=== PATIENT | female | born 2000 | race Caucasian/White ===

== ENCOUNTER 2024-05-23 19:24 | Emergency (ER) | payer SELFPAY ==
--- OUTSIDE RECORDS SUMMARY | 2024-05-23 19:29 | XMS REPORT | Continuity of Care Document ---
Author Name Unknown Address [address] [facility] [address] [id number] [facility] thconnect Address [address] [facility] [address] [place] [address] Care Team Providers Care Pole Cutter Name Role Phone LINDY FINLEY Primary Care Physician Unavailab LINDA Souza Attending Clinician Unavailable SARAH FLORES Attending Clinician Unavailbryan Barnhart [facility]ending [facility]ician [phone] LINDY FINLEY Attending Clinician Unavailable Doctor Unassigned, [place] Attending Clinician U navitzel Lab, [facility] Attending Clinician Unavailable Ekta MILK BOTTLING MACHINE OPERATORLindy Ignacio Attending Clinician [phone] Nurse [facility] Rg[facility] Cprit Obgyn Attending Clini bette Unavailable Akinlakshmi Alba AKHTAR Attending Clinician + ALBA TROTTER Attending Clinician Unavail able ALIVIA GRECO Attending Clinician UnavailAlivia Patterson CNM Attending Clinician [phone] LILI HANSON Attending Clinician Unavailable Visit, [facility] Nurse Attending Clinician Unava ilCATHY Rojas Attending Clinician Unavailable Blaine HADLEY, Cathy Nguyen Attending Clinician [phone] Elizabet Gomez MD, Kadie Attending Clinician + Mehran HADLEY, Yossi Attending Clinician [phone] Lamont HADLEY, Keagan Attending Clinician [phone] Provider, [facility] Temp Attending Clinician Dora vailable Quynh RN, Kandice Lara Attending Clinician Dora vailable Ultrasound, [facility] Attending Clinician UnavailTan Mead MD Attending Clinician [phone] TAN MONGE Attending Clinician Unavailable TAN MONGE Attending Clinician Unavailable Maricel Hitchcock Attending Clinician [phone] Lab, Kaye Attending Clinician Unavailable DANY LAW Attending Clinician Unavailab le Aamir DO, Rachid Attending Clinician [phone] Dany Beauchamp Attending Clinician + [phone] Danyel Dias MD Attending Clinician + DANYEL DIAS Attending Clinician Unav ailable Doctor Unassigned, [place] Attending Clinician U navailable CATHY VALLADARES Admitting Clinician Unavailable Cathy Valladares MD Admitting Clinician [phone] Payers Payer Name Policy Type Policy Number Effective Date Expirati on Date Source [facility] [id number] 2022 00:00:00 Problems Condition Name Condition Details Condition Category Status Onset Date Resolution Date Last Treatment Date Treating Clinician Comments Source Chest pain, unspecifie d type Chest pain, unspecifie d type Disease Active 03-21 00:00: 00 [facility] 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 Disease Active 03-21 00:00: 00 [facility] Encounter for other contracept becca management Encounter for other contracept becca management Disease Active 12-03 00:00: 00 [facility] Endometrit is following delivery Endometrit is following delivery Disease Active 10-27 00:00: 00 [facility] depression depression Disease Active 10-27 00:00: 00 [facility] Endometrit is following delivery Endometrit is following delivery Disease Active 10-27 00:00: 00 [facility] Obesity (BMI 30-39.9) Obesity (BMI 30-39.9) Disease Active 3-17 00:00: 00 [facility] Chronic hypertensi on Chronic hypertensi on Disease Active 0 3-10 00:00: 00 [facility] Over weight Over weight Disease Active 2021-07 1-22 00:00: 00 [facility] BMI 28.0-28.9, adult BMI 28.0-28.9, adult Disease Active 8-16 00:00: 00 [facility] No known active problems No known active problems Disease [facility] Anemia, Anemia, Disease Resolve d 0 4-05 00:00: 00 2024-01-10 00:00:00 2024-01-10 10:43:40 [facility] Status post delivery Status post delivery Disease Resolve d 0 4-05 00:00: 00 2022-12-03 00:00:00 2022-12-03 15:24:09 [facility] 38 weeks gestation of 38 weeks gestation of Disease Resolve d 0 3-10 00:00: 00 2022 00:00:00 2022 21:43:27 [facility] Heartburn during in third trimester Heartburn during in third trimester Disease Resolve d 0 2-03 00:00: 00 2022 00:00:00 2022 21:43:38 [facility] related carpal tunnel syndrome in third trimester related carpal tunnel syndrome in third trimester Disease Resolve d 2022-0 2-03 00:00: 00 2022 00:00:00 2022 21:43:42 [facility] Pain of round ligament during Pain of round ligament during Disease Resolve d 2022-0 1-17 00:00: 00 2022 00:00:00 2022 21:43:26 [facility] Elevated blood pressure reading without diagnosis of hypertensi on Elevated blood pressure reading without diagnosis of hypertensi on Disease Resolve d 2021-07 1-22 00:00: 00 2022 00:00:00 2022 21:43:32 [facility] Obesity affecting Obesity affecting Disease Resolve d 1 1-22 00:00: 00 2022 00:00:00 2022 21:43:40 [facility] Primigravi da in first trimester Primigravi da in first trimester Disease Resolve d 0 8-16 00:00: 00 2022 00:00:00 2022 21:43:43 [facility] Supervisio n of high risk in first trimester Supervisio n of high risk in first trimester Disease Resolve d 8-16 00:00: 00 2022-07-21 00:00:00 2022-07-21 19:28:34 [facility] BMI 28.0-28.9, adult BMI 28.0-28.9, adult Disease Resolve d 8-16 00:00: 00 2022-07-07 00:00:00 2022-07-07 16:17:42 [facility] Nausea without vomiting Nausea without vomiting Disease Resolve d 8-16 00:00: 00 2022-07-07 00:00:00 2022-07-07 16:18:02 [facility] Allergies, Adverse Reactions, Alerts Allergy Name Allergy Type Status Severity Reaction(s) Onset Date Inactive Date Treating Clinician Comments Source NO KNOWN ALLERGIE S Drug Class Active [facility] Social History Social Habit Start Date Stop Date Quantity Comments Source ASSERTION 2022-01-16 00:00:00 [facility] History of Social function 2024-03-21 00:00:00 2024-03-21 00:00:00 [facility] Alcoholic beverage intake 2024-03-21 00:00:00 2024-03-21 00:00:00 Ex-drinker (finding) [facility] Exposure to SARS-CoV-2 (event) 2022-11-23 00:00:00 2022-12-03 14:26:00 Not sure [facility] Alcohol intake 2022-12-03 00:00:00 2022-12-03 00:00:00 Ex-drinker (finding) [facility] Tobacco use and exposure 2022-02-09 00:00:00 2022-02-09 00:00:00 Smokeless tobacco non-user [facility] Sex assigned at 2000 00:00:00 2000 00:00:00 [facility] Smoking Status Start Date Stop Date Source Tobacco smoking consumption unknown [facility] Never smoked tobacco [facility] Medications Ordered Medication Name Filled Medication Name Start Date Stop Date Current Medication? Ordering Clinician Indication Dosage Frequency Signature (SIG) Comments Components Source omeprazole 40 mg capsule 03-21 00:00: 00 Yes [id number] 40mg Take 1 capsule by mouth in the morning. [facility] norethindro ne 0.35 mg tablet 03-09 00:00: 00 03-21 00:00 :00 No [id number] 1{tbl} Take 1 tablet by mouth in the morning. [facility] norethindro ne 0.35 mg tablet 12-03 00:00: 00 03-09 00:00 :00 No [id number] 1{tbl} Take 1 tablet by mouth in the morning. [facility] hydroCHLORO thiazide 12.5 mg tablet 16 00:00: 00 03-21 00:00 :00 No [id number] 12.5mg Take 1 tablet by mouth in the morning. [facility] tobramycin (NEBCIN) 400 mg in NaCl 0.9% (NS) piggyback 10-06 23:00: 00 10-06 23:34 :00 No 5mg/kg 400 mg (rounded from 402 mg = 5 mg/kg ?80.4 kg Adjusted weight), IV Piggyback, Q24H ABX, 1 dose, First dose (after last modificati on) on Tue10/06/22 at 1800, Administer over 30 Minutes, 50 mL
R erlin for Anti-Infec tive: Documented Infection< br>Documen tani Infection Site: Pelvic
Duration of Therapy: 7 days [facility] hydroCHLORO thiazide (ESIDRIX) tablet 12.5 mg 10-06 19:00: 00 Yes 12.5mg 12.5 mg, Oral, DAILY, First dose on Tue10/06/22 at 1400, Until Discontinu ed, Routine [facility] polyethylen e glycol 3350 powder 17 g 10-05 23:00: 00 Yes 17g 17 g, Oral, PRN, Starting on Tue10/05/22 at 1800, Until Discontinu ed, Routine, Constipati on [facility] magnesium hydroxide (MILK OF MAGNESIA) 400 mg/5 mL suspension 30 mL 10-05 23:00: 00 Yes 30mL 30 mL, Oral, QDAILYPRN, Starting on Tue10/05/22 at 1800, Until Discontinu ed, Routine, Constipati on [facility] sennosides (SENOKOT) tablet 8.6 mg 10-05 14:00: 00 Yes 8.6mg 8.6 mg, Oral, DAILY, First dose on Tue10/05/22 at 0900, Until Discontinu ed, Routine [facility] magnesium hydroxide (MILK OF MAGNESIA) 400 mg/5 mL suspension 30 mL 10-05 14:00: 00 10-05 22:59 :44 No 30mL 30 mL, Oral, DAILY, First dose (after last modificati on) on Tue10/05/22 at 0900, Until Discontinu ed, Routine [facility] diphenhydrA MINE (BENADRYL) injection 50 mg 10-05 06:00: 00 10-05 06:24 :00 No 50mg 50 mg, Intravenou s, ONCE, 1 dose, On Tue10/05/22 at 0115, Routine [facility] polyethylen e glycol 3350 powder 17 g 10-05 06:00: 00 10-05 22:59 :44 No 17g 17 g, Oral, DAILY, First dose on Tue10/05/22 at 0100, Until Discontinu ed, Routine [facility] lidocaine 1% (XYLOCAINE) 10 mg/mL (1 %) injection 10 mL 10-05 00:45: 00 10-05 00:01 :00 No 10mL 10 mL, Infiltrati on, ONCE, 1 dose, On Tue10/04/22 at 1945, Routine [facility] acetaminoph en (TYLENOL) tablet 650 mg 10-04 23:15: 00 10-05 05:52 :00 No 650mg 650 mg, Oral, ONCE, 1 dose, On Tue10/04/22 at 1815, Routine [facility] simethicone (GAS RELIEF (SIMETHICON E)) chewable tablet 160 mg 10-04 23:00: 00 Yes 160mg 160 mg, Oral, PC+HS, First dose (after last modificati on) on Tue10/04/22 at 1800, Until Discontinu ed, Routine [facility] tobramycin (NEBCIN) 400 mg in NaCl 0.9% (NS) piggyback 10-04 23:00: 00 10-06 22:57 :52 No 5mg/kg 400 mg (rounded from 402 mg = 5 mg/kg ?80.4 kg Adjusted weight), IV Piggyback, Q24H ABX, 3 doses, First dose on Tue10/04/22 at 1800, Last dose on Tue10/06/22 at 1800, Administer over 30 Minutes, 50 mL
Reas on for Anti-Infec tive: Documented Infection< br>Documen tani Infection Site: Pelvic
Duration of Therapy: 7 days [facility] ampicillin (POLYCILLIN -N) 2,000 mg in NaCl 0.9% (NS) 100 mL MINI-BAG 10-04 23:00: 00 10-06 22:57 :51 No 2g 2,000 mg (2 g), IV Piggyback, Q6H ABX, First dose on Tue10/04/22 at 1800, Until Discontinu ed, Administer over 30 Minutes, 100 mL
Reas on for Anti-Infec tive: Empiric Therapy for Suspected Infection< br>Empiric Therapy Site: Pelvic
Duration of therapy: 5 days [facility] clindamycin in 5 % dextrose (CLEOCIN) 900 mg/50 mL IV piggyback RTU 900 mg 10-04 23:00: 00 10-06 22:57 :51 No 900mg 900 mg, IV Piggyback, Q8H ABX, 9 doses, First dose on Tue10/04/22 at 1800, Last dose on Tue10/07/22 at 1000, Administer over 30 Minutes, 50 mL
Reas on for Anti-Infec tive: Empiric Therapy for Suspected Infection< br>Empiric Therapy Site: Pelvic
Duration of therapy: 72 hours
R estricted use approved by: [employer]
seafood service team member approving Restricted medication : MAR BOOTHE [facility] lactated ringers IV infusion 500 mL 10-04 22:15: 00 10-04 21:40 :00 No 500mL at 999 mL/hr, 500 mL, Intravenou s, ONCE, 1 dose, On Tue10/04/22 at 1715, Routine [facility] vitamin w/FA tablet 10-04 00:00: 00 Yes [id number] 1{tbl} Take 1 tablet by mouth in the morning. [facility] vitamin w/FA tablet 10-04 00:00: 00 03-21 00:00 :00 No [id number] 1{tbl} Take 1 tablet by mouth in the morning. [facility] docusate 100 mg capsule 10-04 00:00: 00 03-21 00:00 :00 No [id number] 200mg Take 2 capsules by mouth once daily as needed for Constipati on. [facility] ferrous sulfate 325 mg (65 mg iron) tablet 10-04 00:00: 00 03-21 00:00 :00 No [id number] 325mg Take 1 tablet by mouth in the morning and 1 tablet in the evening. [facility] ibuprofen 600 mg tablet 10-04 00:00: 00 03-21 00:00 :00 No [id number] 600mg Take 1 tablet by mouth every 6 (six) hours as needed (Pain). Take with food or milk. [facility] norethindro ne 0.35 mg tablet 10-04 00:00: 00 03-21 00:00 :00 No [id number] .35mg Take 1 tablet by mouth in the morning. [facility] HYDROcodone -acetaminop hen 5-325 mg tablet 10-04 00:00: 00 10-12 04:59 :00 No [id number] 1{tbl} Take 1 tablet by mouth every 6 (six) hours as needed for Pain (scale 7-10) or Pain (scale 4-6) (Pain scale above 4) for up to 7 days. Do not exceed 3 grams of acetaminop hen in 24 hours. Indication s: acute pain [facility] lactated ringers IV infusion 1,000 mL 10-03 14:45: 00 10-03 14:45 :00 No 1000mL at 125 mL/hr, 1,000 mL, IV Infusion, ONCE, 1 dose, On Tue10/03/22 at 0945, Routine [facility] rho(D) immune globulin (RHOGAM) syringe 300 mcg 10-03 14:42: 43 Yes 300ug 300 mcg, Intramuscu lar, ONCE, For 1 dose, Conditiona l, Routine [facility] HYDROcodone -acetaminop hen (NORCO 5) 5-325 mg tablet 2 tablet 10-03 14:42: 37 Yes 2{tbl} 2 tablet, Oral, Q6HPRN, Starting on Tue10/03/22 at 0942, Until Discontinu ed, Routine, Pain (scale 7-10), Alternate with Ibuprofen [facility] HYDROcodone -acetaminop hen (NORCO 5) 5-325 mg tablet 1 tablet 10-03 14:42: 37 Yes 1{tbl} 1 tablet, Oral, Q6HPRN, Starting on Tue10/03/22 at 0942, Until Discontinu ed, Routine, Pain (scale 4-6), Alternate with Ibuprofen [facility] ibuprofen (IBU) tablet 600 mg 10-03 14:42: 37 Yes 600mg 600 mg, Oral, Q6HPRN, Starting on Tue10/03/22 at 0942, Until Discontinu ed, Routine, Pain (scale 1-3) [facility] diphenhydrA MINE (BENADRYL) injection 25 mg 10-03 14:42: 37 Yes 25mg 25 mg, Slow IV Push, Q6HPRN, Starting on Tue10/03/22 at 0942, Until Discontinu ed, Routine, Itching [facility] diphenhydrA MINE (BENADRYL) tablet 25 mg 10-03 14:42: 37 Yes 25mg 25 mg, Oral, Q6HPRN, Starting on Tue10/03/22 at 0942, Until Discontinu ed, Routine, Sleep, Itching [facility] ondansetron (ZOFRAN (PF)) injection 4 mg 10-03 14:42: 37 Yes 4mg 4 mg, Slow IV Push, Q8HPRN, Starting on Tue10/03/22 at 0942, Until Discontinu ed, Routine, Nausea and Vomiting (N/V) [facility] bisacodyL (DULCOLAX) suppository 10 mg 10-03 14:42: 37 Yes 10mg 10 mg, Rectal, QDAILYPRN, Starting on Tue10/03/22 at 0942, Until Discontinu ed, Routine, Constipati on [facility] lactated ringers IV infusion 1,000 mL 10-03 14:42: 37 10-05 03:18 :59 No 1000mL at 125 mL/hr, 1,000 mL, IV Infusion, PRN, 1 dose, Starting on Tue10/03/22 at 0942, Until Discontinu ed, Routine [facility] docusate (COLACE) capsule 200 mg 10-03 14:42: 37 10-05 06:00 :34 No 200mg 200 mg, Oral, QDAILYPRN, Starting on Tue10/03/22 at 0942, Until Tue10/05/22 at 0100, Routine, Constipati on [facility] magnesium hydroxide (MILK OF MAGNESIA) 400 mg/5 mL suspension 30 mL 10-03 14:42: 37 10-05 06:00 :34 No 30mL 30 mL, Oral, QDAILYPRN, Starting on Tue10/03/22 at 0942, Until Tue10/05/22 at 0100, Routine, Constipati on [facility] simethicone (GAS RELIEF (SIMETHICON E)) chewable tablet 160 mg 10-03 14:42: 37 10-04 18:48 :38 No 160mg 160 mg, Oral, PC+HSPRN, Starting on Tue10/03/22 at 0942, Until Tue10/04/22 at 1348, Routine, Gas [facility] acetaminoph en ADULT (OFIRMEV) injection 1,000 mg 10-03 14:15: 00 10-03 13:38 :00 No 1000mg 1,000 mg, IV Infusion, at 400 mL/hr Administer over 15 Minutes, ONCE, 1 dose, On Tue10/03/22 at 0915, Routine
Indicatio n: Perioperat becca Patient [facility] diphenoxyla te-atropine (LOMOTIL) 2.5-0.025 mg tablet 1 tablet 10-03 13:30: 00 10-03 12:43 :00 No 1{tbl} 1 tablet, Oral, ONCE, 1 dose, On Tue10/03/22 at 0830, Routine [facility] oxytocin (PITOCIN) 30 units in NS 500 mL IV infusion 10-03 11:10: 08 10-03 14:42 :40 No 300mL/h 300 mL/hr, IV Infusion, SEE-INSTRU CTIONS, Starting on Tue10/03/[address] at 300 mL/hr for 1 hr then 150 mL/hr for 1 hr. & nbsp; For post delivery uterotonic
[facility] metroNIDAZO LE in NaCl (iso-os) (FLAGYL I.V.) RTU IV infusion 500 mg 10-03 10:45: 00 10-04 01:48 :00 No 500mg 500 mg, IV Infusion, Q12H ABX, 2 doses, First dose on 10/03/22 at 0545, Last dose on Tue10/03/22 at 1745, Administer over 60 Minutes, 100 mL
Reas on for Anti-Infec tive: Surgical Prophylaxi s
Surgi agustina Prophylaxi s: [employer]
Duration of therapy: within 24 hours of surgery [facility] sodium citrate-cit alan acid (BICITRA) 500-334 mg/5 mL solution 30 mL 10-03 04:51: 48 10-03 09:45 :00 No 30mL 30 mL, Oral, PRE-PROCED URE ONCE, 1 dose, Starting on 10/02/22 at 2251, Until Discontinu ed, Routine, Surgery/Pr ocedure [facility] tobramycin (NEBCIN) 400 mg in NaCl 0.9% (NS) piggyback 10-03 03:42: 00 10-04 17:57 :28 No 5mg/kg 400 mg (rounded from 402 mg = 5 mg/kg ?80.4 kg Adjusted weight), IV Piggyback, Q24H ABX, 3 doses, First dose on 10/02/22 at 2145, Last dose on 10/04/22 at 2145, Administer over 30 Minutes, 50 mL
Reas on for Anti-Infec tive: Documented Infection< br>Documen tani Infection Site: Pelvic
Duration of Therapy: Other (see Comments) [facility] ampicillin (POLYCILLIN -N) 2,000 mg in NaCl 0.9% (NS) 100 mL MINI-BAG 10-03 03:41: 00 10-04 17:57 :28 No 2g 2,000 mg (2 g), IV Piggyback, Q6H ABX, First dose on 10/02/22 at 2145, Until Discontinu ed, Administer over 30 Minutes, 100 mL
Reas on for Anti-Infec tive: Documented Infection< br>Documen tani Infection Site: Pelvic
Duration of Therapy: Other (see Comments) [facility] acetaminoph en (TYLENOL) tablet 1,000 mg 10-02 20:30: 00 10-03 03:53 :00 No 1000mg 1,000 mg, Oral, ONCE, 1 dose, On Tue10/02/22 at 1430, Routine [facility] ropivacaine 0.2 % (NAROPIN (PF)) epidural infusion 10-02 11:56: 00 Yes Epidural, CONTINUOUS PRN, Starting on Tue10/02/22 at 0556, Until Discontinu ed, Routine, Intra-op [facility] butorphanol (STADOL) injection 1 mg 10-02 04:45: 00 10-02 03:57 :00 No 1mg 1 mg, Intravenou s, ONCE, 1 dose, On Tue10/01/22 at 2245, Routine [facility] butorphanol (STADOL) injection 1 mg 10-02 00:30: 00 10-01 23:39 :00 No 1mg 1 mg, Intravenou s, ONCE, 1 dose, On Tue10/01/22 at 1830, Routine [facility] oxytocin (PITOCIN) 30 units in NS 500 mL IV infusion 10-01 23:15: 54 10-03 14:42 :40 No 2mU/min at 2-40 mL/hr, IV Infusion, TITRATE, Starting on Tue10/01/22 at 1715, Until Tue10/03/22 at 0942, MARCEL [facility] proMETHazin e (PHENERGAN) 25 mg in NS 50 mL IV piggyback (CNR) 10-01 10:45: 00 10-01 11:17 :45 No 25mg 25 mg, IV Piggyback, at 200 mL/hr Administer over 15 Minutes, ONCE, 1 dose, On Tue10/01/22 at 0445, Routine [facility] butorphanol (STADOL) injection 1 mg 10-01 10:45: 00 10-01 10:28 :00 No 1mg 1 mg, Intravenou s, ONCE, 1 dose, On Tue10/01/22 at 0445, Routine [facility] hygroscopic cervical dilator 4 x 65 mm (DILAPAN) sponge Spge 4 Each 10-01 09:00: 00 10-01 08:25 :00 No 4{each} 4 Each, Cervical (Endo), ONCE NOW, 1 dose, On Tue10/01/22 at 0300, Routine [facility] lactated ringers IV infusion 500 mL 10-01 07:04: 20 10-03 14:42 :40 No 500mL at 999 mL/hr, 500 mL, IV Infusion, PRN - SEE INSTRUCTIO NS, Starting on Tue10/01/22 at 0104, Until 10/03/22 at 0942, Routine [facility] D5W-LR IV infusion 1,000 mL 10-01 07:04: 20 10-03 14:42 :40 No 1000mL at 1-125 mL/hr, IV Infusion, TITRATE, Starting on Tue10/01/22 at 0104, Until 10/03/22 at 0942, Routine [facility] sodium citrate-cit alan acid (BICITRA) 500-334 mg/5 mL solution 30 mL 10-01 07:04: 20 10-02 11:15 :00 No 30mL 30 mL, Oral, PRE-PROCED URE ONCE, 1 dose, Starting on Tue10/01/22 at 0104, Until Discontinu ed, Routine, Surgery/Pr ocedure [facility] vit 33-iron-fol ic-dha (SELECT-OB + DHA) 29 mg iron-1 mg -250 mg combo pack -19 00:00: 00 10-04 00:00 :00 No [id number] 1{packe t} Take 1 Packet by mouth in the morning. [facility] Immunizations Ordered Immunization Name Filled Immunization Name Date Status Comments Source HPV9 2024-02-22 00:00:00 Completed HPV9 2024-01-10 00:00:00 Completed [facility] TDAP 2022-07-21 00:00:00 Completed [facility] TDAP 2022-07-21 00:00:00 Completed [facility] TDAP 2022-07-21 00:00:00 Completed [facility] TDAP 2022-07-21 00:00:00 Completed [facility] TDAP 2022-07-21 00:00:00 Completed [facility] TDAP 2022-07-21 00:00:00 Completed [facility] TDAP 2022-07-21 00:00:00 Completed [facility] TDAP 2022-07-21 00:00:00 Completed [facility] TDAP 2022-07-21 00:00:00 Completed [facility] TDAP 2022-07-21 00:00:00 Completed [facility] TDAP 2022-07-21 00:00:00 Completed [facility] TDAP 2022-07-21 00:00:00 Completed [facility] TDAP 2022-07-21 00:00:00 Completed [facility] TDAP 2022-07-21 00:00:00 Completed [facility] TDAP 2022-07-21 00:00:00 Completed [facility] TDAP 2022-07-21 00:00:00 Completed [facility] TDAP 2022-07-21 00:00:00 Completed [facility] TDAP 2022-07-21 00:00:00 Completed [facility] TDAP 2022-07-21 00:00:00 Completed [facility] TDAP Unknown Completed [facility] HPV9 Unknown Completed [facility] TDAP Unknown Completed [facility] HPV9 Unknown Completed [facility] TDAP Unknown Completed [facility] HPV9 Unknown Completed [facility] TDAP Unknown Completed [facility] HPV9 Unknown Completed [facility] TDAP Unknown Completed [facility] HPV9 Unknown Completed [facility] TDAP Unknown Completed [facility] HPV9 Unknown Completed [facility] Vital Signs Vital Name Observation Time Observation Value Comments S shiela Systolic blood pressure 2024-03-21 19:59:00 137 mm[Hg] [facility] Diastolic blood pressure 2024-03-21 19:59:00 79 mm[Hg] [facility] Heart rate 2024-03-21 19:59:00 67 /min [facility] Body temperature 2024-03-21 19:59:00 37 Pattie [facility] Respiratory rate 2024-03-21 19:59:00 18 /min [facility] Body height 2024-03-21 19:59:[address] [facility] Body weight 2024-03-21 19:59:[address] [facility] BMI 2024-03-21 19:59:00 33.45 kg/m2 [facility] Oxygen saturation in Arterial blood by Pulse oximetry 2024-03-21 19:59:00 100 /min [facility] Body temperature 2024-02-22 16:05:00 36.67 Pattie [facility] Systolic blood pressure 2024-01-10 15:30:00 130 mm[Hg] [facility] Diastolic blood pressure 2024-01-10 15:30:00 67 mm[Hg] [facility] Heart rate 2024-01-10 15:30:00 68 /min [facility] Body temperature 2024-01-10 15:30:00 36.33 Pattie [facility] Respiratory rate 2024-01-10 15:30:00 18 /min [facility] Body height 2024-01-10 15:30:00 172.7 cm [facility] Body weight 2024-01-10 15:30:00 100.064 kg [facility] BMI 2024-01-10 15:30:00 33.54 kg/m2 [facility] Systolic blood pressure 2022-12-03 19:52:00 125 mm[Hg] [facility] Diastolic blood pressure 2022-12-03 19:52:00 62 mm[Hg] [facility] Heart rate 2022-12-03 19:52:00 61 /[facility] temperature 2022-12-03 19:52:00 36.78 Pattie [facility] Respiratory rate 2022-12-03 19:52:00 16 /min [facility] Body height 2022-12-03 19:52:00 172.7 cm [facility] Body weight 2022-12-03 19:52:[address] [facility] BMI 2022-12-03 19:52:00 31.52 kg/m2 Univ [facility] Systolic blood pressure 2022 20:37:00 113 mm[Hg] [facility] Diastolic blood pressure 2022 20:37:00 73 mm[Hg] [facility] Heart rate 2022 20:37:00 84 /min [facility] Body temperature 2022 20:37:00 36.67 Pattie [facility] Respiratory rate 2022 20:37:00 18 /min [facility] Body height 2022 20:37:00 172.7 cm [facility] Body weight 2022 20:37:00 91.717 kg [facility] BMI 2022 20:37:00 30.74 kg/m2 Univ [facility] Systolic blood pressure 2022-10-11 18:48:00 134 mm[Hg] [facility] Diastolic blood pressure 2022-10-11 18:48:00 80 mm[Hg] [facility] Heart rate 2022-10-11 18:47:00 90 /min Unive [facility] Body temperature 2022-10-11 18:47:00 37.06 Pattie [facility] Respiratory rate 2022-10-11 18:47:00 18 /min [facility] Body height 2022-10-11 18:47:00 172.7 cm [facility] Body weight 2022-10-11 18:47:[address] [facility] BMI 2022-10-11 18:47:00 31.09 kg/m2 [facility] Body weight 2022-10-07 20:00:00 105.1 kg [facility] BMI 2022-10-07 20:00:00 35.23 kg/m2 [facility] Systolic blood pressure 2022-10-07 13:28:00 138 mm[Hg] [facility] Diastolic blood pressure 2022-10-07 13:28:00 93 mm[Hg] [facility] Heart rate 2022-10-07 13:28:00 84 /min Un[facility] Body temperature 2022-10-07 13:28:00 36.61 Patite [facility] Respiratory rate 2022-10-07 13:28:00 17 /min [facility] Oxygen saturation in Arterial blood by Pulse oximetry 2022-10-07 13:28:00 99 /min [facility] Heart rate 2022-10-03 10:57:00 127 /[facility] Oxygen saturation in Arterial blood by Pulse oximetry 2022-10-03 10:57:00 99 /min [facility] Systolic blood pressure 2022-10-03 10:00:00 156 mm[Hg] [facility] Diastolic blood pressure 2022-10-03 10:00:00 89 mm[Hg] [facility] Body temperature 2022-10-03 10:00:00 37.44 Pattie [facility] Respiratory rate 2022-10-03 10:00:00 20 /min [facility] Systolic blood pressure 2022-09-30 21:16:00 151 mm[Hg] [facility] Diastolic blood pressure 2022-09-30 21:16:00 87 mm[Hg] [facility] Heart rate 2022-09-30 21:16:00 74 /min Unive [facility] Body temperature 2022-09-30 21:15:00 36.67 Pattie [facility] Respiratory rate 2022-09-30 21:15:00 18 /min [facility] Body height 2022-09-30 21:15:00 172.7 cm [facility] Body weight 2022-09-30 21:15:[address] [facility] BMI 2022-09-30 21:15:00 35.21 kg/m2 Univ [facility] Systolic blood pressure 2022-09-21 21:54:00 130 mm[Hg] [facility] Diastolic blood pressure 2022-09-21 21:54:00 78 mm[Hg] [facility] Heart rate 2022-09-21 21:46:00 76 /min Un[facility] Body temperature 2022-09-21 21:46:00 37 Pattie [facility] Respiratory rate 2022-09-21 21:46:00 18 /min [facility] Body height 2022-09-21 21:46:[address] [facility] Body weight 2022-09-21 21:46:00 102.967 kg [facility] BMI 2022-09-21 21:46:00 34.52 kg/m2 Univ [facility] Systolic blood pressure 2022-09-10 20:09:00 128 mm[Hg] [facility] Diastolic blood pressure 2022-09-10 20:09:00 86 mm[Hg] [facility] Heart rate 2022-09-10 20:09:00 82 /min Unive [facility] Body temperature 2022-09-10 20:03:00 36.44 Pattie [facility] Respiratory rate 2022-09-10 20:03:00 18 /min [facility] Body height 2022-09-10 20:03:[address] [facility] Body weight 2022-09-10 20:03:[address] [facility] BMI 2022-09-10 20:03:00 34.21 kg/m2 Univ [facility] Systolic blood pressure 2022-08-27 20:10:00 119 mm[Hg] [facility] Diastolic blood pressure 2022-08-27 20:10:00 71 mm[Hg] [facility] Heart rate 2022-08-27 20:05:00 62 /min [facility] Body temperature 2022-08-27 20:05:00 37.17 Pattie [facility] Respiratory rate 2022-08-27 20:05:00 17 /min [facility] Body height 2022-08-27 20:05:00 172.7 cm [facility] Body weight 2022-08-27 20:05:00 98.839 kg [facility] BMI 2022-08-27 20:05:00 33.13 kg/m2 [facility] Systolic blood pressure 2022-08-10 21:19:00 126 mm[Hg] [place] [facility] Diastolic blood pressure 2022-08-10 21:19:00 80 mm[Hg] [facility] Heart rate 2022-08-10 21:19:00 74 /min [facility] Body temperature 2022-08-10 21:19:00 37.06 Pattie [facility] Respiratory rate 2022-08-10 21:19:00 20 /min [facility] Body height 2022-08-10 21:19:00 172.7 cm [facility] Body weight 2022-08-10 21:19:[address] [facility] BMI 2022-08-10 21:19:00 31.90 kg/m2 Univ [facility] Systolic blood pressure 2022-07-21 21:07:00 131 mm[Hg] [facility] Diastolic blood pressure 2022-07-21 21:07:00 71 mm[Hg] [facility] Heart rate 2022-07-21 21:07:00 75 /min [facility] Body temperature 2022-07-21 21:07:00 37 Pattie [facility] Respiratory rate 2022-07-21 21:07:00 17 /min [facility] Body height 2022-07-21 21:07:00 172.7 cm [facility] Body weight 2022-07-21 21:07:00 92.67 kg [facility] BMI 2022-07-21 21:07:00 31.06 kg/m2 Univ [facility] Systolic blood pressure 2022-07-07 21:53:00 130 mm[Hg] [facility] Diastolic blood pressure 2022-07-07 21:53:00 86 mm[Hg] [facility] Heart rate 2022-07-07 21:53:00 88 /min Unive [facility] Body temperature 2022-07-07 21:53:00 37.17 Pattie [facility] Respiratory rate 2022-07-07 21:53:00 16 /min [facility] Body height 2022-07-07 21:53:[address] [facility] Body weight 2022-07-07 21:53:00 90.351 kg [facility] BMI 2022-07-07 21:53:00 30.29 kg/m2 Univ [facility] Systolic blood pressure 2022-06-15 21:32:00 134 mm[Hg] [facility] Diastolic blood pressure 2022-06-15 21:32:00 65 mm[Hg] [facility] Heart rate 2022-06-15 21:32:00 78 /min Unive [facility] Body temperature 2022-06-15 21:31:00 37.39 Pattie [facility] Respiratory rate 2022-06-15 21:31:00 18 /min [facility] Body height 2022-06-15 21:31:[address] [facility] Body weight 2022-06-15 21:31:[address] [facility] BMI 2022-06-15 21:31:00 28.97 kg/m2 Univ [facility] Systolic blood pressure 2022-05-04 20:52:00 109 mm[Hg] [facility] Diastolic blood pressure 2022-05-04 20:52:00 56 mm[Hg] [facility] Heart rate 2022-05-04 20:33:00 66 /min Unive [facility] Body temperature 2022-05-04 20:33:00 37.22 Pattie [facility] Respiratory rate 2022-05-04 20:33:00 16 /min [facility] Body height 2022-05-04 20:33:00 172.7 cm [facility] Body weight 2022-05-04 20:33:[address] [facility] BMI 2022-05-04 20:33:00 28.55 kg/m2 [facility] Heart rate 2022-04-06 20:21:00 81 /min Unive [facility] Body temperature 2022-04-06 20:21:00 36.67 Pattie [facility] Respiratory rate 2022-04-06 20:21:00 20 /min [facility] Body height 2022-04-06 20:21:[address] [facility] Body weight 2022-04-06 20:21:00 80.831 kg [facility] BMI 2022-04-06 20:21:00 27.10 kg/m2 [facility] Oxygen saturation in Arterial blood by Pulse oximetry 2022-04-06 20:21:00 100 /min [facility] Systolic blood pressure 2022-04-06 20:21:00 131 mm[Hg] [facility] Diastolic blood pressure 2022-04-06 20:21:00 73 mm[Hg] [facility] Systolic blood pressure 2022-03-09 20:10:00 142 mm[Hg] [facility] Diastolic blood pressure 2022-03-09 20:10:00 74 mm[Hg] [facility] Heart rate 2022-03-09 20:10:00 64 /min [facility] Body temperature 2022-03-09 20:10:00 36.61 Pattie [facility] Respiratory rate 2022-03-09 20:10:00 18 /min [facility] Body weight 2022-03-09 20:10:00 82.645 kg [facility] BMI 2022-03-09 20:10:00 28.54 kg/m2 [facility] Body height 2022-02-09 20:20:[address] [facility] Systolic blood pressure 2022-02-09 20:19:00 128 mm[Hg] [facility] Diastolic blood pressure 2022-02-09 20:19:00 73 mm[Hg] [facility] Heart rate 2022-02-09 20:19:00 74 /min [facility] Body temperature 2022-02-09 20:19:00 37.39 Pattie [facility] Respiratory rate 2022-02-09 20:19:00 18 /min [facility] Body weight 2022-02-09 20:19:00 82.696 kg [facility] BMI 2022-02-09 20:19:00 28.55 kg/m2 [facility] Procedures Procedure Date / Time Performed Performing Clinician Source GARDASIL 9 (HPV 9V) VACCINE 2024-02-22 16:06:51 Alba Trotter [facility] GARDASIL 9 (HPV 9V) VACCINE 2024-01-10 16:08:06 Alba Trotter [facility] POCT TEST 2024-01-10 15:58:00 Linda Barnhart [facility] CBC WITH DIFF 2022-12-03 20:43:00 Alba Trotter [facility] GC & CHLAMYDIA AMPLIFIED ASSAY 2022-12-03 20:43:00 Alba Trotter [facility] POCT TEST 2022-12-03 20:27:00 Julio Trotter [facility] CBC WITH DIFF 2022-10-06 16:53:00 Donna Diehl Mai [facility] MRSA / MSSA SCREEN BY YESY KOENIG 2022-10-05 23:24:00 Radha Rodríguez [facility] US LOWER EXTREMITY VEIN WITH COMPRESSION BILATERAL (ONLY FOR RULE OUT DVT) 2022-10-05 02:39:09 Santiago Alvares [facility] HB ECG ROUTINE & RHYTHM STRIP 2022-10-05 01:41:43 Aaliyah Oliver [facility] BLOOD CULTURE SCREEN 2022-10-05 00:17:00 Santiago Walsh [facility] BLOOD CULTURE SCREEN 2022-10-05 00:09:00 Santiago Walsh [facility] URINALYSIS 2022-10-04 23:30:00 Donna Diehl Mai [facility] URINALYSIS 2022-10-04 23:30:00 Donna Diehl Sallyclaudia Santillan [facility] URINE CULTURE 2022-10-04 23:30:00 Donna Diehl Sally Santillan [facility] XR CHEST 1 VW 2022-10-04 22:18:00 Donna Diehl Mai [facility] CBC WITH DIFF 2022-10-04 08:22:00 Wes Dean [facility] CBC WITH DIFF 2022-10-04 08:22:00 Jermaine [facility] VENOUS CORD GAS 2022-10-03 11:43:00 [facility] 2022-10-03 11:43:00 [facility] SE[facility] 2022-10-03 10:47:00 Elizabet aguilar [facility] SECTION 2022-10-03 10:47:00 Elizabet aguilar [facility] CENTRAL NEURAXIAL BLOCK 2022-10-02 12:17:00 Scotty Laurent [facility] HB ABO GROUPING 2022-10-01 07:21:00 Jv Adena [facility] RHO (D) IMMUNE GLOBULIN 2022-10-01 07:21:00 Sidney Dean [facility] HB ABO GROUPING 2022-10-01 07:21:00 Zenaida Carias [facility] RHO (D) IMMUNE GLOBULIN 2022-10-01 07:21:00 Sidney Dean [facility] SGOT (ASPARTATE AMINO TRANSFER) 2022-10-01 05:05:00 Jv [facility] CREATININE 2022-10-01 05:05:00 Jv [facility] ALANINE AMINO TRANSFERASE(SGPT 2022-10-01 05:05:00 Jv [facility] LACTATE DEHYDROGENASE 2022-10-01 05:05:00 Enma Carias ea [facility] URIC ACID 2022-10-01 05:05:00 Zenaida Carias [facility] CBC WITH DIFF 2022-10-01 05:05:00 Zenaida Carias [facility] URINALYSIS 2022-10-01 05:05:00 [facility] ANTIGEN 2022-10-01 05:05:00 [facility] PROTEIN CREAT RATIO URINE RANDOM 2022-10-01 05:05:00 [facility] HIV 1/2 AG-AB WITH REFLEX 2022-10-01 05:05:00 [facility] SYPHILIS IGG/IGM 2022-10-01 05:05:00 Zenaida Carias [facility] SGOT (ASPARTATE AMINO TRANSFER) 2022-10-01 05:05:00 [facility]INE 2022-10-01 05:05[facility](SGPT 2022-10-01 05:05:00 [facility] LACTATE DEHYDROGENASE 2022-10-01 05:05:00 Enma Carias ea [facility] URIC ACID 2022-10-01 05:05:00 Zenaida Carias [facility] CBC WITH DIFF 2022-10-01 05:05:00 Zenaida Carias [facility] URINALYSIS 2022-10-01 05:05:00 Zenaida Carias [facility] HEPATITIS B SURFACE ANTIGEN 2022-10-01 05:05:00 [facility] PROTEIN CREAT RATIO URINE RANDOM 2022-10-01 05:05:00 [facility] HIV 1/2 AG-AB WITH REFLEX 2022-10-01 05:05:00 Jv [facility] SYPHILIS IGG/IGM 2022-10-01 05:05:00 Zenaida Carias [facility] POCT URINALYSIS 2022-09-30 21:35:00 Dany Law [facility] POCT URINALYSIS 2022-09-21 21:50:00 Dany Law [facility] CBC WITH DIFF 2022-09-10 21:09:00 Alivia Greco [facility] POCT URINALYSIS 2022-09-10 20:10:00 Dany Law [facility] POCT URINALYSIS GLUCOSE & PROTEIN 2022-08-27 20:20:00 Alivia Greco [facility] POCT URINALYSIS 2022-08-10 00:00:00 Dany Law [facility] TDAP VACCINE, >11 YRS, IM 2022-07-21 21:34:31 Alivia Greco [facility] POCT URINALYSIS 2022-07-21 00:00:00 Dany Law [facility] POCT URINALYSIS 2022-07-07 21:54:00 Dany Law [facility] POCT URINALYSIS 2022-06-15 21:32:00 Dany Law [facility] POCT URINALYSIS 2022-05-04 00:00:00 Dany Law [facility] POCT MOLECULAR FLU 2022-04-06 20:39:00 Sergio Law [facility] POCT MOLECULAR STREP 2022-04-06 20:30:00 Lolis Law [facility] POCT URINALYSIS 2022-04-06 00:00:00 Dany Law [facility] POCT URINALYSIS 2022-03-09 20:15:00 Dany Law [facility] EXTERNAL PROVIDER RECORDS 2022-02-17 05:01:00 Doctor Unassigned, [place] [facility] POCT TEST 2022-02-09 20:13:00 Alisha Law [facility] POCT URINALYSIS W/O SPECIFIC GRAVITY 2022-02-09 20:13:00 Dany Law [facility] ASSIGNMENT OF BENEFITS 2022-02-09 19:52:43 Docto r Unassigned, [place] [facility] Encounters Start Date/Time End Date/Time Encounter Type Admission Type Attending [facility] Care Department Encounter ID Source 2024-08-03 10:00:00 2024-08-03 10:00:00 Outpatient R [facility] [id number] [facility] 2024-07-20 10:30:00 2024-07-20 10:30:00 Outpatient R [facility] [id number] [facility] 2024-05-04 00:00:00 2024-05-07 09:51:49 Telephone Linda Barnhart [facility] MAT[facility]NAL & CHILD [facility] 1.2.840.114 350.1.13.10 4.2.7.2.686 [id number] [facility] 2024-05-02 14:30:00 2024-05-02 14:30:00 Outpatient R LINDY FINLEY [facility] [id number] [facility] 2024-03-23 00:00:00 2024-03-23 12:19:54 Patient Secure Msg Doctor Unassigned, [place] Doctor Unassigned, [place] [facility] 1.2.840.114 350.1.13.10 4.2.7.2.686 [id number] [facility] 2024-03-23 00:00:00 2024-03-23 09:19:20 Patient Secure Msg Doctor Unassigned, [place] Doctor Unassigned, [place] [facility] 1.2.840.114 350.1.13.10 4.2.7.2.686 [id number] [facility] 2024-03-21 15:45:00 2024-03-21 16:52:21 Outpatient R LINDY FINLEY [facility] [id number] [facility] 2024-03-21 15:45:00 2024-03-21 16:00:00 Java Application Developer Visit Lab, Boris Yulizette Lnidykathy Aguirre, Boris Rees [facility] 1.2.840.114 350.1.13.10 4.2.7.2.686 [id number] [facility] 2024-03-21 15:00:00 2024-03-21 15:34:37 Office Visit GigiLindy bauer [facility] 1.2.840.114 350.1.13.10 4.2.7.2.686 [id number] [facility] 2024-03-12 10:00:00 2024-03-12 10:00:00 Outpatient R LINDY FINLEY [facility] [id number] [facility] 2024-02-22 10:30:00 2024-02-22 10:45:00 Nurse Visit Nurse, Boris Rmchp Rgv Cprit Obgyn Alba Trotter [facility] MATERNAL & [facility] 1..840.114 350.1.13.10 4.2.7.2.686 [id number] [facility] 2024-02-22 10:30:00 2024-02-22 10:30:00 Outpatient R ALBA TROTTER [facility] [id number] [facility] 2024-02-16 10:30:00 2024-02-16 10:30:00 Outpatient R [facility] [id number] [facility] 2024-02-15 10:30:00 2024-02-15 10:30:00 Outpatient R [facility] [id number] [facility] 2021-10-23 00:00:00 2024-01-23 15:39:02 Case Management Alba Trotter [facility] & CHILD [facility] 1.2.840.114 350.1.13.10 4.2.7.2.686 [id number] [facility] 2024-01-10 10:30:00 2024-01-10 11:08:08 Outpatient R OBEY LINDA [facility] [id number] [facility] 2024-01-10 10:30:00 2024-01-10 11:08:08 Office Visit ObeyLinda [facility] MATERNAL & CHILD [facility] 1.2.840.114 350.1.13.10 4.2.7.2.686 [id number] [facility] 2023-03-30 11:00:00 2023-03-30 11:00:00 Outpatient R ALBA TROTTER [facility] [id number] [facility] 2023-03-27 00:00:00 2023-03-27 00:00:00 Refill Alba Trotter [facility] CHILD [facility] 1.2.840.114 350.1.13.10 4.2.7.2.686 [id number] [facility] 2023-03-22 00:00:00 2023-03-22 00:00:00 Telephone Alba Trotter [facility] & CHILD [facility] 1.2.840.114 350.1.13.10 4.2.7.2.686 [id number] [facility] 2023-03-09 00:00:00 2023-03-09 00:00:00 Telephone Alba Trotter [facility] CHILD [facility] 1.2.840.114 350.1.13.10 4.2.7.2.686 [id number] [facility] 2022-12-03 15:30:00 2022-12-03 15:51:08 Outpatient R ALBA TROTTER [facility] [id number] [facility] 2022-12-03 15:30:00 2022-12-03 15:51:08 Office Visit Alba Trotter [facility] & CHILD [facility] 1.2.840.114 350.1.13.10 4.2.7.2.686 [id number] [facility] 2022-11-19 14:45:00 2022-11-19 14:45:00 Outpatient R ALBA TROTTER [facility] [id number] [facility] 2022 15:30:00 2022 16:15:32 Outpatient R ALIVIA GRECO [facility] [id number] [facility] 2022 15:30:00 2022 16:15:32 Routine Visit Alivia Greco [facility] & CHILD [facility] 1.2.840.114 350.1.13.10 4.2.7.2.686 [id number] [facility] 2022-10-11 13:30:00 2022-10-11 13:45:00 Nurse Visit Visit, Ang-Rmchp Nurse Alba Trotter [facility] CHILD [facility] 1.2.840.114 350.1.13.10 4.2.7.2.686 [id number] [facility] 2022-10-11 13:30:00 2022-10-11 13:30:00 Outpatient R ALBA TROTTER [facility] [id number] [facility] 2022-09-30 20:41:00 2022-10-07 16:13:00 Inpatient P CATHY VALLADARES [facility] [id number] [facility] 2022-09-30 20:41:00 2022-10-07 16:13:00 Hospital Encounter Cathy Valladares [facility] 1..840.114 350.1.13.10 4.2.7.2.686 [id number] [facility] 2022-10-05 15:00:00 2022-10-05 15:00:00 Outpatient R [facility] [id number] [facility] 2022-10-03 05:00:00 2022-10-03 06:59:00 Surgery [place] Kadie Gomez [facility] 1.2.840.114 350.1.13.10 4.2.7.2.686 [id number] [facility] 2022-10-02 05:24:00 2022-10-03 05:00:00 Anesthesia Event Yossi Laurent Brian [facility] 1.2840.114 350.1.13.10 4.2.7.2.686 [id number] [facility] 2022-09-30 15:15:00 2022-09-30 15:46:13 Outpatient ALIVIA NGO [facility] [id number] [facility] 2022-09-30 15:15:00 2022-09-30 15:46:13 Routine Visit Provider, Boris-Rmchp Alivia Case [facility] 1.2.840.114 350.1.13.10 4.2.7.2.686 [id number] [facility] 2022-09-29 00:00:00 2022-09-29 00:00:00 Nurse Triage Kandice Torres [facility] 1.2.840.114 350.1.13.10 4.2.7.2.686 [id number] [facility] 2022-09-21 15:00:00 2022-09-21 16:02:26 Outpatient ALIVIA NGO [facility] [id number] [facility] 2022-09-21 15:00:00 2022-09-21 16:02:26 Routine Visit Provider, Alivia Frazier [facility] 1..840.114 350.1.13.10 [id number] [id number] [facility] 2022-09-16 15:15:00 2022-09-16 15:15:00 Outpatient [facility] [facility] [id number] [facility] 2022-09-10 14:00:00 2022-09-10 15:11:17 Outpatient ALIVIA NGO [facility] [id number] [facility] 2022-09-10 14:00:00 2022-09-10 15:11:17 Routine Visit Provider, Alivia Frazier [facility] & CHILD [facility] 1..840.114 350.1.13.10 4.2.7.2.686 [id number] [facility] 2022-08-27 14:15:00 2022-08-27 14:51:45 Outpatient ALIVIA NGO [facility] [id number] [facility] 2022-08-27 14:15:00 2022-08-27 14:51:45 Routine Visit Provider, Alivia Frazier [facility] & CHILD [facility] 1..840.114 350.1.13.10 4.2.7.2.686 [id number] [facility] 2022-08-24 15:30:00 2022-08-24 15:30:00 Outpatient ALIVIA NGO [facility] [id number] [facility] 2022-08-10 15:30:00 2022-08-10 15:47:42 Outpatient ALIVIA NGO [facility] [id number] [facility] 2022-08-10 15:30:00 2022-08-10 15:47:42 Routine Visit Provider, Alivia Frazier [facility] CHILD [facility] 1..840.114 350.1.13.10 4.2.7.2.686 [id number] [facility] 2022-08-05 13:15:00 2022-08-05 13:15:00 Outpatient ALIVIA NGO [facility] [id number] [facility] 2022-07-27 00:00:00 2022-07-27 00:00:00 Abstract Alba Trotter [facility] & CHILD [facility] 1..840.114 350.1.13.10 4.2.7.2.686 [id number] [facility] 2022-07-22 13:15:00 2022-07-22 14:00:00 Java Application Developer Visit Ultrasound, Tan Ortega [facility] CHILD [facility] 1..840.114 350.1.13.10 4.2.7.2.686 [id number] [facility] 2022-07-22 13:15:00 2022-07-22 13:15:00 [facility] [id number] [facility] 2022-07-21 14:45:00 2022-07-21 15:33:26 Outpatient ALIVIA NGO [facility] [id number] [facility] 2022-07-21 14:45:00 2022-07-21 15:33:26 Routine Visit Provider, Ang-RmchMaricel Monahan Brenda A [facility] CHILD [facility] 1..840.114 350.1.13.10 4.2.7.2.686 [id number] [facility] 2022-07-12 13:15:00 2022-07-12 13:21:12 Outpatient ALBA OAKES [facility] [id number] [facility] 2022-07-12 13:15:00 2022-07-12 13:21:12 Java Application Developer Visit Lab, Alba Awan [facility] .840.114 350.1.13.10 4.2.7.2.686 [id number] [facility] 2022-07-09 10:30:00 2022-07-09 10:30:00 Outpatient ALIVIA NGO [facility] [id number] [facility] 2022-07-07 15:30:00 2022-07-07 16:11:25 Outpatient ALIVIA NGO [facility] [id number] [facility] 2022-07-07 15:30:00 2022-07-07 16:11:25 Routine Visit Provider, Alivia Frazier [facility] .840.114 350.1.13.10 4.2.7.2.686 [id number] [facility] 2022-06-23 00:00:00 2022-06-23 00:00:00 Alba Agrawal [facility] 1..840.114 350.1.13.10 4.2.7.2.686 [id number] 107 [id number] [facility] 2022-06-15 15:30:00 2022-06-15 15:56:17 Outpatient R ALBA TROTTER [facility] [id number] [facility] 2022-06-15 15:30:00 2022-06-15 15:56:17 Routine Visit Rose Marie Alba Izaguirre [facility] & CHILD [facility] 1..840.114 350.1.13.10 4.2.7.2.686 [id number] [facility] 2022-06-01 15:45:00 2022-06-01 15:45:00 Outpatient R ZULLYLIBIALILIALBA [facility] [id number] [facility] 2022-05-24 13:00:00 2022-05-24 14:00:00 Java Application Developer Visit Ultrasound, Deeptisarah Rutledge Rachid [facility] & CHILD [facility] 1..840.114 350.1.13.10 4.2.7.2.686 [id number] [facility] 2022-05-24 13:00:00 2022-05-24 13:00:00 Outpatient RACHID RINCON [facility] [id number] [facility] 2022-05-04 15:30:00 2022-05-04 16:07:19 Outpatient R DANY LAW [facility] [id number] [facility] 2022-05-04 15:30:00 2022-05-04 15:45:00 Routine Visit Dany Law [facility] CHILD [facility] ..840.114 350.1.13.10 4.2.7.2.686 [id number] [facility] 2022-04-06 14:45:00 2022-04-06 15:52:42 Outpatient R DANY LAW [facility] [id number] [facility] 2022-04-06 14:45:00 2022-04-06 15:52:42 Routine Visit OsmelsiAlba cody Roshunda R [facility] & CHILD [facility] 1.2840.114 350.1.13.10 4.2.7.2.686 [id number] [facility] 2022-03-22 00:00:00 2022-03-22 00:00:00 Abstract Dany Law [facility] & CHILD [facility] 1.2840.114 350.1.13.10 4.2.7.2.686 [id number] [facility] 2022-03-19 13:00:00 2022-03-19 13:30:00 Java Application Developer Visit Ultrasound, [facility] Danyel Bassett [facility] & CHILD [facility] 1.840.114 350.1.13.10 4.2.7.2.686 [id number] [facility] 2022-03-19 13:00:00 2022-03-19 13:00:00 Outpatient P DANYEL BASSETT [facility] [id number] [facility] 2022-03-09 14:30:00 2022-03-09 15:57:08 Outpatient R DANY LAW [facility] [id number] [facility] 2022-03-09 14:30:00 2022-03-09 15:57:08 Routine Visit Dany Law [facility] CHILD [facility] 1.2.840.114 350.1.13.10 4.2.7.2.686 [id number] [facility] 2022-02-23 00:00:00 2022-02-23 00:00:00 Telephone Dany Law [facility] CHILD [facility] 1.2840.114 350.1.13.10 4.2.7.2.686 [id number] [facility] 2022-02-17 00:00:00 2022-02-17 00:00:00 Orders Only Doctor Unassigned, [place] [facility] 1.2.840.114 350.1.13.10 4.2.7.2.686 [id number] [facility] 2022-02-09 14:45:00 2022-02-09 16:04:58 Initial Visit Dany Law [facility] 1..840.114 350.1.13.10 4.2.7.2.686 [id number] [facility] 2022-02-09 14:45:00 2022-02-09 16:04:58 Outpatient R DANY LAW [facility] [id number] [facility] 2022-02-09 00:00:00 2022-02-09 00:00:00 Orders Only Doctor Unassigned, [place] [facility] 1.2840.114 350.1.13.10 4.2.7.2.686 [id number] [facility] Results Test Description Test Time Test Comments Results Result Co mments Source [id number] 15:58:00* Test Item Value Reference Range Interpretation Comme nts POCT PREG (test code = 1605) Negative On board controls acceptable with C Line (test code = 3574) Yes POCT PREG LOT # (test code = 3575) POCT PREG TEST DATE ( test code = 3576) [facility] [id number] 15:58:00* Test Item Value Reference Range Interpretation Comme nts POCT PREG (test code = 1605) Negative On board controls acceptable with C Line (test code = 3574) Yes POCT PREG LOT # (test code = 3575) POCT PREG TEST DATE ( test code = 3576) [facility] WITH [id number] 05:10:05* Test Item Value Reference Range Interpretation Comme nts WBC (test code = 6690-2) 6.72 See_Comment [Automated messa ge] The system which generated this result transmitted reference range: 4.30 - 11.10 10*3/?L. The reference range was not used to interpret this result as normal/abnormal. RBC (test code = 789-8) 4.80 See_Comment [Automated messa ge] The system which generated this result transmitted reference range: 3.93 - 5.25 10*6/?L. The reference range was not used to interpret this result as normal/abnormal. HGB (test code = 718-7) 12.9 g/dL 11.6-15.0 HCT (test code = 4544-3) 40.8 % 35.7-45.2 MCV (test code = 787-2) 85.0 fL 80.6-95.5 MCH (test code = 785-6) 26.9 pg 25.9-32.8 MCHC (test code = 786-4) 31.6 g/dL 31.6-35.1 RDW-SD (test code = 47133-3) 41.1 fL 39.0-49.9 RDW-CV (test code = 788-0) 13.2 % 12.0-15.5 PLT (test code = 777-3) 235 See_Comment [Automated messa ge] The system which generated this result transmitted reference range: 166 - 358 10*3/?L. The reference range was not used to interpret this result as normal/abnormal. MPV (test code = 46938-0) 9.6 fL 9.5-12.9 NRBC/100 WBC (test code = 5756022011) 0.0 See_Comment [Automated me ssage] The system which generated this result transmitted reference range: 0.0 - 10.0 /100 WBCs. The reference range was not used to interpret this result as normal/abnormal. NRBC x10^3 (test code = 7377250099) See_Comment [Automated me ssage] The system which generated this result transmitted reference range: 10*3/?L. The reference range was not used to interpret this result as normal/abnormal. GRAN MAT (NEUT) % (test code = 770-8) 46.4 % IMM GRAN % (test code = 6173267247) 0.10 % LYMPH % (test code = 736-9) 39.7 % MONO % (test code = 5905-5) 9.8 % EOS % (test code = 713-8) 3.4 % BASO % (test code = 706-2) 0.6 % GRAN MAT x10^3(ANC) (test code = 8918327701) 3.11 10*3/uL 1.88-7.09 IMM GRAN x10^3 (test code = 1414644483) 0.00-0.06 LYMPH x10^3 (test code = 731-0) 2.67 10*3/uL 1.32-3.29 MONO x10^3 (test code = 742-7) 0.66 10*3/uL 0.33-0.92 EOS x10^3 (test code = 711-2) 0.23 10*3/uL 0.03-0.39 BASO x10^3 (test code = 704-7) 0.04 10*3/uL 0.01-0.07 [facility] WITH [id number] 05:10:05* Test Item Value Reference Range Interpretation Comme nts WBC (test code = 6690-2) 6.72 See_Comment [Automated messa ge] The system which generated this result transmitted reference range: 4.30 - 11.10 10*3/?L. The reference range was not used to interpret this result as normal/abnormal. RBC (test code = 789-8) 4.80 See_Comment [Automated messa ge] The system which generated this result transmitted reference range: 3.93 - 5.25 10*6/?L. The reference range was not used to interpret this result as normal/abnormal. HGB (test code = 718-7) 12.9 g/dL 11.6-15.0 HCT (test code = 4544-3) 40.8 % 35.7-45.2 MCV (test code = 787-2) 85.0 fL 80.6-95.5 MCH (test code = 785-6) 26.9 pg 25.9-32.8 MCHC (test code = 786-4) 31.6 g/dL 31.6-35.1 RDW-SD (test code = 63952-1) 41.1 fL 39.0-49.9 RDW-CV (test code = 788-0) 13.2 % 12.0-15.5 PLT (test code = 777-3) 235 See_Comment [Automated messa ge] The system which generated this result transmitted reference range: 166 - 358 10*3/?L. The reference range was not used to interpret this result as normal/abnormal. MPV (test code = 36157-7) 9.6 fL 9.5-12.9 NRBC/100 WBC (test code = 6811864239) 0.0 See_Comment [Automated me ssage] The system which generated this result transmitted reference range: 0.0 - 10.0 /100 WBCs. The reference range was not used to interpret this result as normal/abnormal. NRBC x10^3 (test code = 3651633114) See_Comment [Automated me ssage] The system which generated this result transmitted reference range: 10*3/?L. The reference range was not used to interpret this result as normal/abnormal. GRAN MAT (NEUT) % (test code = 770-8) 46.4 % IMM GRAN % (test code = 9128567633) 0.10 % LYMPH % (test code = 736-9) 39.7 % MONO % (test code = 5905-5) 9.8 % EOS % (test code = 713-8) 3.4 % BASO % (test code = 706-2) 0.6 % GRAN MAT x10^3(ANC) (test code = 5028992400) 3.11 10*3/uL 1.88-7.09 IMM GRAN x10^3 (test code = 9937139014) 0.00-0.06 LYMPH x10^3 (test code = 731-0) 2.67 10*3/uL 1.32-3.29 MONO x10^3 (test code = 742-7) 0.66 10*3/uL 0.33-0.92 EOS x10^3 (test code = 711-2) 0.23 10*3/uL 0.03-0.39 BASO x10^3 (test code = 704-7) 0.04 10*3/uL 0.01-0.07 [facility] [id number] 20:28:00* Test Item Value Reference Range Interpretation Comme nts POCT PREG (test code = 1605) Negative On board controls acceptable with C Line (test code = 3574) Yes POCT PREG LOT # (test code = 3575) POCT PREG TEST DATE ( test code = 3576) [facility] [id number] 20:28:00* Test Item Value Reference Range Interpretation Comme nts POCT PREG (test code = 1605) Negative On board controls acceptable with C Line (test code = 3574) Yes POCT PREG LOT # (test code = 3575) POCT PREG TEST DATE ( test code = 3576) [facility] WITH [id number] 17:07:00* Test Item Value Reference Range Interpretation Comme nts WBC (test code = 6690-2) 7.60 See_Comment [Automated messa ge] The system which generated this result transmitted reference range: 4.30 - 11.10 10*3/?L. The reference range was not used to interpret this result as normal/abnormal. RBC (test code = 789-8) 3.09 See_Comment L [Automated messa ge] The system which generated this result transmitted reference range: 3.93 - 5.25 10*6/?L. The reference range was not used to interpret this result as normal/abnormal. HGB (test code = 718-7) 9.1 g/dL 11.6-15.0 L HCT (test code = 4544-3) 27.5 % 35.7-45.2 L MCV (test code = 787-2) 89.0 fL 80.6-95.5 MCH (test code = 785-6) 29.4 pg 25.9-32.8 MCHC (test code = 786-4) 33.1 g/dL 31.6-35.1 RDW-SD (test code = 04586-2) 43.0 fL 39.0-49.9 RDW-CV (test code = 788-0) 13.2 % 12.0-15.5 PLT (test code = 777-3) 207 See_Comment [Automated messa ge] The system which generated this result transmitted reference range: 166 - 358 10*3/?L. The reference range was not used to interpret this result as normal/abnormal. MPV (test code = 16456-6) 9.5 fL 9.5-12.9 NRBC/100 WBC (test code = 5698128124) 0.0 See_Comment [Automated [employer] ssage] The system which generated this result transmitted reference range: 0.0 - 10.0 /100 WBCs. The reference range was not used to interpret this result as normal/abnormal. NRBC x10^3 (test code = 2087480724) See_Comment [Automated messa ge] The system which generated this result transmitted reference range: 10*3/?L. The reference range was not used to interpret this result as normal/abnormal. GRAN MAT (NEUT) % (test code = 770-8) 78.6 % IMM GRAN % (test code = 2084464641) 0.80 % LYMPH % (test code = 736-9) 11.2 % MONO % (test code = 5905-5) 7.2 % EOS % (test code = 713-8) 2.1 % BASO % (test code = 706-2) 0.1 % GRAN MAT x10^3(ANC) (test code = 3688027904) 5.97 10*3/uL 1.88-7.09 IMM GRAN x10^3 (test code = 7769546633) 0.06 10*3/uL 0.00-0.06 LYMPH x10^3 (test code = 731-0) 0.85 10*3/uL 1.32-3.29 L MONO x10^3 (test code = 742-7) 0.55 10*3/uL 0.33-0.92 EOS x10^3 (test code = 711-2) 0.16 10*3/uL 0.03-0.39 BASO x10^3 (test code = 704-7) 0.01-0.07 Lab Interpretation (test code = 66336-1) Abnormal [facility] WITH [id number] 17:07:00* Test Item Value Reference Range Interpretation Comme nts WBC (test code = 6690-2) 7.60 See_Comment [Automated messa ge] The system which generated this result transmitted reference range: 4.30 - 11.10 10*3/?L. The reference range was not used to interpret this result as normal/abnormal. RBC (test code = 789-8) 3.09 See_Comment L [Automated messa ge] The system which generated this result transmitted reference range: 3.93 - 5.25 10*6/?L. The reference range was not used to interpret this result as normal/abnormal. HGB (test code = 718-7) 9.1 g/dL 11.6-15.0 L HCT (test code = 4544-3) 27.5 % 35.7-45.2 L MCV (test code = 787-2) 89.0 fL 80.6-95.5 MCH (test code = 785-6) 29.4 pg 25.9-32.8 MCHC (test code = 786-4) 33.1 g/dL 31.6-35.1 RDW-SD (test code = 07313-9) 43.0 fL 39.0-49.9 RDW-CV (test code = 788-0) 13.2 % 12.0-15.5 PLT (test code = 777-3) 207 See_Comment [Automated messa ge] The system which generated this result transmitted reference range: 166 - 358 10*3/?L. The reference range was not used to interpret this result as normal/abnormal. MPV (test code = 37988-7) 9.5 fL 9.5-12.9 NRBC/100 WBC (test code = 9085918965) 0.0 See_Comment [Automated [employer] ssage] The system which generated this result transmitted reference range: 0.0 - 10.0 /100 WBCs. The reference range was not used to interpret this result as normal/abnormal. NRBC x10^3 (test code = 3444876909) See_Comment [Automated messa ge] The system which generated this result transmitted reference range: 10*3/?L. The reference range was not used to interpret this result as normal/abnormal. GRAN MAT (NEUT) % (test code = 770-8) 78.6 % IMM GRAN % (test code = 4648323428) 0.80 % LYMPH % (test code = 736-9) 11.2 % MONO % (test code = 5905-5) 7.2 % EOS % (test code = 713-8) 2.1 % BASO % (test code = 706-2) 0.1 % GRAN MAT x10^3(ANC) (test code = 6158587643) 5.97 10*3/uL 1.88-7.09 IMM GRAN x10^3 (test code = 3195601821) 0.06 10*3/uL 0.00-0.06 LYMPH x10^3 (test code = 731-0) 0.85 10*3/uL 1.32-3.29 L MONO x10^3 (test code = 742-7) 0.55 10*3/uL 0.33-0.92 EOS x10^3 (test code = 711-2) 0.16 10*3/uL 0.03-0.39 BASO x10^3 (test code = 704-7) 0.01-0.07 Lab Interpretation (test code = 03950-6) Abnormal [facility] (D) IMMUNE [id number] 14:44:04* Test Item Value Reference Range Interpretation Comme nts RHIG CANDIDATE? (test code = 5188) No- see comment Patient is not a candidate for RhIg- Patient is Rh Positive.Performed at [facility] Laboratory Services - [facility] Blood [place] [id number] Free: [phone] No. [id number] [facility] (D) IMMUNE [id number] 14:44:04* Test Item Value Reference Range Interpretation Comme nts RHIG CANDIDATE? (test code = 5188) No- see comment Patient is not a candidate for RhIg- Patient is Rh Positive.Performed at [facility] Laboratory Services - [facility] Blood [address] [address]Qftm Free: [phone] No. [id number] [facility] (D) IMMUNE [id number] 14:44:04* Test Item Value Reference Range Interpretation Comme nts RHIG CANDIDATE? (test code = 5188) No- see comment Patient is not a candidate for RhIg- Patient is Rh Positive.Performed at [facility] Laboratory Services - [facility] Blood [address] [address]Dpby Free: [phone] No. [id number] [facility] CORD [id number] 12:13:57* Test Item Value Reference Range Interpretation Comme [facility] VENOUS BASE EXCESS, CORD (test code = 6548941710) -4.5 mEq/L VENOUS PH, CORD (test code = 1483345413) 7.33 7.25-7.45 VENOUS PC02, CORD (test code = 3884553642) 42 See_Comment [Automated messa ge] The system which generated this result transmitted reference range: 27 - 49 mmHg. The reference range was not used to interpret this result as normal/abnormal. VENOUS PO2, CORD (test code = 9090645497) 21 See_Comment [Automated me ssage] The system which generated this result transmitted reference range: 17 - 41 mmHg. The reference range was not used to interpret this result as normal/abnormal. VENOUS BICARBONATE, CORD (test code = 7253158781) 21 See_Comment [Automated messa ge] The system which generated this result transmitted reference range: 12 - 29 mEq/L. The reference range was not used to interpret this result as normal/abnormal. [facility] CORD [id number] 12:13:57* Test Item Value Reference Range Interpretation Comme [facility] VENOUS BASE EXCESS, CORD (test code = 4996549274) -4.5 mEq/L VENOUS PH, CORD (test code = 4069876472) 7.33 7.25-7.45 VENOUS PC02, CORD (test code = 0423176106) 42 See_Comment [Automated messa ge] The system which generated this result transmitted reference range: 27 - 49 mmHg. The reference range was not used to interpret this result as normal/abnormal. VENOUS PO2, CORD (test code = 8691450715) 21 See_Comment [Automated me ssage] The system which generated this result transmitted reference range: 17 - 41 mmHg. The reference range was not used to interpret this result as normal/abnormal. VENOUS BICARBONATE, CORD (test code = 9982388057) 21 See_Comment [Automated messa ge] The system which generated this result transmitted reference range: 12 - 29 mEq/L. The reference range was not used to interpret this result as normal/abnormal. [facility] [id number] 12:13:57* Test Item Value Reference Range Interpretation Comme nts VENOUS BASE EXCESS, CORD (test code = 8705022102) -4.5 mEq/L VENOUS PH, CORD (test code = 6308812956) 7.33 7.25-7.45 VENOUS PC02, CORD (test code = 8468235116) 42 See_Comment [Automated messa ge] The system which generated this result transmitted reference range: 27 - 49 mmHg. The reference range was not used to interpret this result as normal/abnormal. VENOUS PO2, CORD (test code = 0412714523) 21 See_Comment [Automated me ssage] The system which generated this result transmitted reference range: 17 - 41 mmHg. The reference range was not used to interpret this result as normal/abnormal. VENOUS BICARBONATE, CORD (test code = 2848125915) 21 See_Comment [Automated messa ge] The system which generated this result transmitted reference range: 12 - 29 mEq/L. The reference range was not used to interpret this result as normal/abnormal. [facility] [id number] 07:29:00 * Test Item Value Reference Range Interpretation Comme nts ABO & RH (test code = 20) A POSITIVE IAT (test code = 1185) Negative [facility] and Screen - ONCE [id number] 07:29:00 * Test Item Value Reference Range Interpretation Comme nts ABO & RH (test code = 20) A POSITIVE IAT (test code = 1185) Negative [facility] and Screen - ONCE [id number] 07:29:00 * Test Item Value Reference Range Interpretation Comme nts ABO & RH (test code = 20) A POSITIVE IAT (test code = 1185) Negative [facility] URINALYSIS W SPECIFIC [id number] 21:35:00* Test Item Value Reference Range Interpretation Comme nts POCT U SP GRAV (test code = 3255) . 1.005-1.025 POCT PH U (test code = 3254) . 5-8 POCT U LEUK EST (test code = 3263) . Negative - N egative POCT U NIT (test code = 3262) . Negative - Negati ve POCT U PROT (test code = 3259) Trace Negative - Negat becca POCT U GLU (test code = 3256) Neg Negative - Negati ve POCT U KETONE (test code = 3258) . Negative - Neg ative POCT U UROBILI (test code = 3260) . 0.2-1 POCT U BILI (test code = 3261) . Negative - Negat becca POCT U BLD (test code = 3257) . Negative - Negati ve POCT U COLOR (test code = 3266) . POCT U APPEAR (test code = 3267) [facility] URINALYSIS W SPECIFIC [id number] 21:35:00* Test Item Value Reference Range Interpretation Comme nts POCT U SP GRAV (test code = 3255) . 1.005-1.025 POCT PH U (test code = 3254) . 5-8 POCT U LEUK EST (test code = 3263) . Negative - N egative POCT U NIT (test code = 3262) . Negative - Negati ve POCT U PROT (test code = 3259) Trace Negative - Negat becca POCT U GLU (test code = 3256) Neg Negative - Negati ve POCT U KETONE (test code = 3258) . Negative - Neg ative POCT U UROBILI (test code = 3260) . 0.2-1 POCT U BILI (test code = 3261) . Negative - Negat becca POCT U BLD (test code = 3257) . Negative - Negati ve POCT U COLOR (test code = 3266) . POCT U APPEAR (test code = 3267) [facility] URINALYSIS W SPECIFIC [id number] 21:50:00* Test Item Value Reference Range Interpretation Comme nts POCT U SP GRAV (test code = 3255) . 1.005-1.025 POCT PH U (test code = 3254) . 5-8 POCT U LEUK EST (test code = 3263) . Negative - N egative POCT U NIT (test code = 3262) . Negative - Negati ve POCT U PROT (test code = 3259) Trace Negative - Negat becca POCT U GLU (test code = 3256) Neg Negative - Negati ve POCT U KETONE (test code = 3258) . Negative - Neg ative POCT U UROBILI (test code = 3260) . 0.2-1 POCT U BILI (test code = 3261) . Negative - Negat becca POCT U BLD (test code = 3257) . Negative - Negati ve POCT U COLOR (test code = 3266) . POCT U APPEAR (test code = 3267) [facility] URINALYSIS W SPECIFIC [id number] 20:13:00* Test Item Value Reference Range Interpretation Comme nts POCT U SP GRAV (test code = 3255) . 1.005-1.025 POCT PH U (test code = 3254) . 5-8 POCT U LEUK EST (test code = 3263) . Negative - N egative POCT U NIT (test code = 3262) . Negative - Negati ve POCT U PROT (test code = 3259) trace Negative - Negat becca POCT U GLU (test code = 3256) neg Negative - Negati ve POCT U KETONE (test code = 3258) . Negative - Neg ative POCT U UROBILI (test code = 3260) . 0.2-1 POCT U BILI (test code = 3261) . Negative - Negat becca POCT U BLD (test code = 3257) . Negative - Negati ve POCT U COLOR (test code = 3266) POCT U APPEAR (test code = 3267) [facility] URINALYSIS W SPECIFIC [id number] 20:13:00* Test Item Value Reference Range Interpretation Comme nts POCT U SP GRAV (test code = 3255) . 1.005-1.025 POCT PH U (test code = 3254) . 5-8 POCT U LEUK EST (test code = 3263) . Negative - N egative POCT U NIT (test code = 3262) . Negative - Negati ve POCT U PROT (test code = 3259) trace Negative - Negat becca POCT U GLU (test code = 3256) neg Negative - Negati ve POCT U KETONE (test code = 3258) . Negative - Neg ative POCT U UROBILI (test code = 3260) . 0.2-1 POCT U BILI (test code = 3261) . Negative - Negat becca POCT U BLD (test code = 3257) . Negative - Negati ve POCT U COLOR (test code = 3266) POCT U APPEAR (test code = 3267) [facility] URINALYSIS GLUCOSE & [id number] 20:20:00* Test Item Value Reference Range Interpretation Comme nts POCT U PROT (test code = 3259) trace Negative - Negat becca POCT U GLU (test code = 3256) negative Negative - Negati ve [facility] URINALYSIS W SPECIFIC [id number] 21:27:00* Test Item Value Reference Range Interpretation Comme nts POCT U SP GRAV (test code = 3255) . 1.005-1.025 POCT PH U (test code = 3254) . 5-8 POCT U LEUK EST (test code = 3263) . Negative - Negative POCT U NIT (test code = 3262) . Negative - Negati ve POCT U PROT (test code = 3259) trace Negative - Negat becca POCT U GLU (test code = 3256) negative Negative - Negati ve POCT U KETONE (test code = 3258) . Negative - Neg ative POCT U UROBILI (test code = 3260) . 0.2-1 POCT U BILI (test code = 3261) . Negative - Negat becca POCT U BLD (test code = 3257) . Negative - Negati ve POCT U COLOR (test code = 3266) . POCT U APPEAR (test code = 3267) . [facility] URINALYSIS W SPECIFIC [id number] 21:10:00* Test Item Value Reference Range Interpretation Comme nts POCT U SP GRAV (test code = 3255) . 1.005-1.025 POCT PH U (test code = 3254) . 5-8 POCT U LEUK EST (test code = 3263) . Negative - Negative POCT U NIT (test code = 3262) . Negative - Negati ve POCT U PROT (test code = 3259) trace Negative - Negat becca POCT U GLU (test code = 3256) negative Negative - Negati ve POCT U KETONE (test code = 3258) . Negative - Neg ative POCT U UROBILI (test code = 3260) . 0.2-1 POCT U BILI (test code = 3261) . Negative - Negat becca POCT U BLD (test code = 3257) . Negative - Negati ve POCT U COLOR (test code = 3266) . POCT U APPEAR (test code = 3267) . [facility] URINALYSIS W SPECIFIC [id number] 21:54:00* Test Item Value Reference Range Interpretation Comme nts POCT U SP GRAV (test code = 3255) . 1.005-1.025 POCT PH U (test code = 3254) . 5-8 POCT U LEUK EST (test code = 3263) . Negative - N egative POCT U NIT (test code = 3262) . Negative - Negati ve POCT U PROT (test code = 3259) Trace Negative - Negat becca POCT U GLU (test code = 3256) Neg Negative - Negati ve POCT U KETONE (test code = 3258) . Negative - Neg ative POCT U UROBILI (test code = 3260) . 0.2-1 POCT U BILI (test code = 3261) . Negative - Negat becca POCT U BLD (test code = 3257) . Negative - Negati ve POCT U COLOR (test code = 3266) . POCT U APPEAR (test code = 3267) . [facility] URINALYSIS W SPECIFIC [id number] 21:32:00* Test Item Value Reference Range Interpretation Comme nts POCT U SP GRAV (test code = 3255) . 1.005-1.025 POCT PH U (test code = 3254) . 5-8 POCT U LEUK EST (test code = 3263) . Negative - N egative POCT U NIT (test code = 3262) . Negative - Negati ve POCT U PROT (test code = 3259) Trace Negative - Negat becca POCT U GLU (test code = 3256) Neg Negative - Negati ve POCT U KETONE (test code = 3258) . Negative - Neg ative POCT U UROBILI (test code = 3260) . 0.2-1 POCT U BILI (test code = 3261) . Negative - Negat becca POCT U BLD (test code = 3257) . Negative - Negati ve POCT U COLOR (test code = 3266) . POCT U APPEAR (test code = 3267) [facility] URINALYSIS W SPECIFIC [id number] 21:32:00* Test Item Value Reference Range Interpretation Comme nts POCT U SP GRAV (test code = 3255) . 1.005-1.025 POCT PH U (test code = 3254) . 5-8 POCT U LEUK EST (test code = 3263) . Negative - N egative POCT U NIT (test code = 3262) . Negative - Negati ve POCT U PROT (test code = 3259) Trace Negative - Negat becca POCT U GLU (test code = 3256) Neg Negative - Negati ve POCT U KETONE (test code = 3258) . Negative - Neg ative POCT U UROBILI (test code = 3260) . 0.2-1 POCT U BILI (test code = 3261) . Negative - Negat becca POCT U BLD (test code = 3257) . Negative - Negati ve POCT U COLOR (test code = 3266) . POCT U APPEAR (test code = 3267) [facility] URINALYSIS W SPECIFIC [id number] 20:37:00* Test Item Value Reference Range Interpretation Comme nts POCT U SP GRAV (test code = 3255) . 1.005-1.025 POCT PH U (test code = 3254) . 5-8 POCT U LEUK EST (test code = 3263) . Negative - Negative POCT U NIT (test code = 3262) . Negative - Negati ve POCT U PROT (test code = 3259) Negative Negative - Negat becca POCT U GLU (test code = 3256) Negative Negative - Negati ve POCT U KETONE (test code = 3258) . Negative - Neg ative POCT U UROBILI (test code = 3260) . 0.2-1 POCT U BILI (test code = 3261) . Negative - Negat becca POCT U BLD (test code = 3257) . Negative - Negati ve POCT U COLOR (test code = 3266) yellow POCT U APPEAR (test code = 3267) clear [facility] URINALYSIS W SPECIFIC [id number] 20:37:00* Test Item Value Reference Range Interpretation Comme nts POCT U SP GRAV (test code = 3255) . 1.005-1.025 POCT PH U (test code = 3254) . 5-8 POCT U LEUK EST (test code = 3263) . Negative - Negative POCT U NIT (test code = 3262) . Negative - Negati ve POCT U PROT (test code = 3259) Negative Negative - Negat becca POCT U GLU (test code = 3256) Negative Negative - Negati ve POCT U KETONE (test code = 3258) . Negative - Neg ative POCT U UROBILI (test code = 3260) . 0.2-1 POCT U BILI (test code = 3261) . Negative - Negat becca POCT U BLD (test code = 3257) . Negative - Negati ve POCT U COLOR (test code = 3266) yellow POCT U APPEAR (test code = 3267) clear [facility] MOLECULAR [id number] 20:51:00* Test Item Value Reference Range Interpretation Comme nts POCT Molecular FluA (test co de = 31652-3) Negative Negative POCT Molecular FluB (test co de = 45140-4) Negative Negative Lab Interpretation (test cod e = 68904-4) Normal [facility] URINALYSIS W SPECIFIC [id number] 20:41:00* Test Item Value Reference Range Interpretation Comme nts POCT U SP GRAV (test code = 3255) . 1.005-1.025 POCT PH U (test code = 3254) . 5-8 POCT U LEUK EST (test code = 3263) . Negative - Negative POCT U NIT (test code = 3262) . Negative - Negati ve POCT U PROT (test code = 3259) trace Negative - Negat becca POCT U GLU (test code = 3256) negative Negative - Negati ve POCT U KETONE (test code = 3258) . Negative - Neg ative POCT U UROBILI (test code = 3260) . 0.2-1 POCT U BILI (test code = 3261) . Negative - Negat becca POCT U BLD (test code = 3257) . Negative - Negati ve POCT U COLOR (test code = 3266) . POCT U APPEAR (test code = 3267) . [facility] MOLECULAR [id number] 20:39:34* Test Item Value Reference Range Interpretation Comme nts POCT Molecular Strep (test c ode = 87820-4) Negative Negative Lab Interpretation (test cod e = 27652-4) Normal [facility] URINALYSIS W SPECIFIC [id number] 20:16:00* Test Item Value Reference Range Interpretation Comme nts POCT U SP GRAV (test code = 3255) * 1.005-1.025 POCT PH U (test code = 3254) * 5-8 POCT U LEUK EST (test code = 3263) * Negative - Negative POCT U NIT (test code = 3262) * Negative - Negati ve POCT U PROT (test code = 3259) TRACE Negative - Negat becca POCT U GLU (test code = 3256) NEGATIVE Negative - Negati ve POCT U KETONE (test code = 3258) * Negative - Neg ative POCT U UROBILI (test code = 3260) * 0.2-1 POCT U BILI (test code = 3261) * Negative - Negat becca POCT U BLD (test code = 3257) * Negative - Negati ve POCT U COLOR (test code = 3266) * POCT U APPEAR (test code = 3267) [facility] [id number] 20:13:00* Test Item Value Reference Range Interpretation Comme nts POCT PREG (test code = 1605) Positive On board controls acceptable with C Line (test code = 3574) Yes POCT PREG LOT # (test code = 3575) POCT PREG TEST DATE ( test code = 3576) [facility] [id number] 20:13:00* Test Item Value Reference Range Interpretation Comme nts POCT PH U (test code = 3254) 7 mg/dl 5-8 POCT U LEUK EST (test code = 3263) Trace Negative - Negative POCT U NIT (test code = 3262) Neg Negative - Negati ve POCT U PROT (test code = 3259) Trace Negative - Negat becca POCT U GLU (test code = 3256) Neg Negative - Negati ve POCT U KETONE (test code = 3258) None Negative - Neg ative POCT U BLD (test code = 3257) Trace Negative - Negati ve [facility] Notes Date/Time Note Provider Source 2024-05-07 09:51:22 Attempt#3. Called, no answer. Left VM. ROBE PARKER RN 05/07/2024 9:51 AM [facility] 2024-05-07 09:11:52 Attempt#2. Called, no answer. Left VM. ROBE PARKER RN 05/07/2024 9:12 AM [facility] 2024-05-04 16:28:12 Attempt#1. Called, no answer. Left VM. ROBE PARKER RN 05/04/2024 4:28 PM [facility] 2024-05-04 16:17:51 Pt is requesting call back, states is a week late and test are negative. Please call [phone] (home) ZEN Johnson [facility] 2024-03-21 15:45:00 Images from the original note were not included. Venipuncture collection performed by clean technique on the right anticubitus. Total of 1 attempts were made. Slight pressure and a bandage/dressing were applied to the site(s). The patient experienced no complications. The following specimens were processed according to instructions and sent to [facility] laboratories per lab order on 03/21/2024 : LT BLUE SST 3 RED LAV 2 PPT DK GREEN (LiHep) DK GREEN (SodH) NGUYEN DK BLUE (K2) DK BLUE (S) ACD Blood Culture NIPT/NTD [facility] 2023-03-23 10:13:24 Formatting of this n ote might be different from the original. Patient stated she has not picked up her OCPs from pharmacy. Stated she was told a medication Chacha was ready for her but was not sure if it was the same thing she was taking before. Informed patient it was the same medication and she would have to have it transferred to [facility] since it is not covered with [facility], verbalized understanding. Holly Espinal LVN [facility] 2023-03-22 14:33:34 Formatting of this n ote might be different from the original. 2nd attempt to call patient, no ring, will try again at a later time. T [facility] 2023-03-22 12:50:34 Formatting of this n ote might be different from the original. Attempted to call patient, no answer, left vm. T [facility] 2023-03-22 11:56:11 Formatting of this n ote might be different from the original. Shaw Hilliard is a 22 year old female Pt states she never picked up control from pharmacy, requesting prescription to be sent again to [facility]/pharmacy #[id number] - [place], [place] - [address] Emilie Bruce [facility] 2023-03-09 09:28:57 Formatting of this n ote might be different from the original. 2 refills sent to pharmacy to last until OCP f/u appt. [facility] 2023-03-09 09:03:17 Formatting of this n ote might be different from the original. Shaw Hilliard is a 22 year old female Pt is requesting a refill for norethindrone 0.35 mg tablet. [facility]/pharmacy #[id number] - [place], [place] - [address] Rosamaria Cronin [facility]
[2024-05-23] MEDS ORDERED: ONDANSETRON 4 MG/2 ML VIAL ONE (21:42)
[2024-05-23] MEDS ORDERED: NA CHLORIDE 0.9% 1,000 ML ONE (21:42)
[2024-05-23 23:05] LABS: Absolute Lymphocytes (CBC) 0.4 K/uL (0.7-4.9); Absolute Monocytes 0.4 K/uL (0.1-1.3); Basophils % 0.2 % (0-1.3); Eosinophils % 0.2 % (0-4.4); Hematocrit 45.2 % (36.0-45.0); Hemoglobin 14.7 g/dL (12.0-15.0); Lymphocytes % 4.4 % (15.3-44.8); MCH 27.9 pg (27.0-35.0); MCHC 32.5 g/dL (32.0-36.0); MCV 85.8 fL (80-100); Monocytes % 4.1 % (3.3-12.3); Neutrophils % 91.1 % (41.7-73.7); Platelets 257 thou/uL (152-406); RBC Red Blood Cell Count 5.26 M/uL (3.86-4.86); Red Cell Distribution Width 13.7 % (12.1-15.2)
[2024-05-23 23:07] LABS: Albumin 4.3 g/dL (3.4-5.0); Anion Gap 8.7 mEq/L (5.0-15.0); Bilirubin Total 0.7 mg/dL (0.2-1.0); Globulin 4.1 g/dL (2.3-3.5); Potassium 3.7 mEq/L (3.5-5.1); Protein, Total 8.4 g/dL (6.4-8.2)
[2024-05-23 23:48] LABS: Band Neutrophils 11 % (0-1); Differential Total Cells Count 100; Eosinophils 1 % (0-3); Lymphocytes 6 % (15-42); Monocytes 5 % (0-10); Reactive Lymphocytes 1 %; Segmented Neutrophils 76 % (40-80)
[2024-05-23 23:49] LABS: Blood Morphology Comment NOT SEEN (NOT SEEN); Platelet Estimate ADEQ
--- NOTE | 2024-05-24 00:08 | ER ---
Nurse's Notes [facility] Name: Jennifer Hilliard Age: 23 yrs Sex: Female : 2000 Arrival Date: 05/23/2024 Time: 19:24 Bed 5 Private MD: Diagnosis: Noninfective gastroenteritis and colitis, unspecified Presentation: 05/23 20:15 Chief complaint: Patient states: Abdominal pain, nausea, vomiting and diarrhea onset cm10 today. Pt reports that her daughter has also been sick. Pt reports that vomiting makes the abdominal pain worse. Coronavirus screen: Client denies travel out of the [place] in the last 14 days. Ebola Screen: Patient denies travel to an Ebola-affected area in the 21 days before illness onset. No symptoms or risks identified at this time. Initial Sepsis Screen: Does the patient meet any 2 criteria? HR > 90 bpm. Does the patient have a suspected source of infection? No. Patient's initial sepsis screen is negative. Risk Assessment: Do you want to hurt yourself or someone else? Patient reports no desire to harm self or others. Onset of symptoms was May 23, 2024. 20:15 Method Of Arrival: Ambulatory cm10 20:15 Acuity: JANICE 3 cm10 Triage Assessment: 20:17 General: Appears in no apparent distress. comfortable, Behavior is calm, cooperative. cm10 Neuro: No deficits noted. Level of Consciousness is awake, alert, obeys commands, Oriented to person, place, time, situation, Appropriate for age. Respiratory: No deficits noted. Airway is patent Respiratory effort is even, unlabored, Respiratory pattern is regular, symmetrical. 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 - Infectious Disease History:: Denies. - Social history:: Smoking status: Patient denies any tobacco usage or history of. Screenin:31 [facility] ED Fall Risk Assessment (Adult) History of falling in the last 3 months, bm8 including since admission No falls in past 3 months (0 pts) Confusion or Disorientation No (0 pts) Intoxicated or Sedated No (0 pts) Impaired Gait No (0 pts) Mobility Assist Device Used No (0 pt) Altered Elimination No (0 pt) Score/Fall Risk Level 0 - 2 = Low Risk Oriented to surroundings, Maintained a safe environment, Educated pt \T\ family on fall prevention, incl call for assistance when getting out of bed, Assessed \T\ reinforced patient's understanding of fall precautions, Hourly rounding (assess needs \T\ fall precautionary measures) done, Used ambulatory aids as needed (educated on \T\ assisted with), Used gait belt as appropriate. Abuse screen: Denies threats or abuse. Nutritional screening: No deficits noted. Tuberculosis screening: No symptoms or risk factors identified. Assessment: 21:31 General: Appears in no apparent distress. comfortable, Behavior is calm, cooperative, bm8 appropriate for age. Pain: Complains of pain in abdomen Pain currently is 7 out of 10 on a pain scale. Neuro: No deficits noted. Level of Consciousness is awake, alert, obeys commands, Oriented to person, place, time, situation, Appropriate for age. Cardiovascular: Denies chest pain, Capillary refill < 3 seconds in bilateral fingers Patient's skin is warm and dry. Respiratory: Airway is patent Trachea midline Respiratory effort is even, unlabored, Respiratory pattern is regular, symmetrical, Breath sounds are clear bilaterally. GI: Abdomen is round obese, Bowel sounds present X 4 quads. Abd is soft and non tender X 4 quads. Reports lower abdominal pain, upper abdominal pain, cramping, diarrhea, nausea, Pain is 7 out of 10 on a pain scale. vomiting. 23:04 Reassessment: Patient appears in no apparent distress at this time. Patient and/or bm8 family updated on plan of care and expected duration. Pain level reassessed. Patient is alert, oriented x 3, equal unlabored respirations, skin warm/dry/pink. Patient denies pain at this time. Patient states feeling better. Patient states symptoms have improved. 05/24 00:29 Reassessment: Patient appears in no apparent distress at this time. Patient and/or bm8 family updated on plan of care and expected duration. Pain level reassessed. Patient is alert, oriented x 3, equal unlabored respirations, skin warm/dry/pink. Patient denies pain at this time. Patient states feeling better. Patient states symptoms have improved. Vital Signs: 05/23 20:15 BP 102 / 64; Pulse 110; Resp 19; Temp 98.4(IR); Pulse Ox 100% ; Weight 86.18 kg; Height cm10 5 ft. 8 in. ; Pain 0/10; 21:31 BP 102 / 56; Pulse 99; Resp 17; Temp 99.2; Pulse Ox 99% on R/A; Pain 7/10; bm8 23:04 BP 111 / 62; Pulse 90; Resp 17; Temp 99; Pulse Ox 99% ; Pain 3/10; bm8 05/24 00:29 BP 115 / 57; Pulse 85; Resp 17; Temp 98.9; Pulse Ox 100% ; Pain 0/10; bm8 05/23 20:15 Body Mass Index 28.89 (86.18 kg, 172.72 cm) cm10 05/23 20:15 Pain Scale: Adult cm10 21:31 Pain Scale: Adult bm8 23:04 Pain Scale: Adult bm8 05/24 00:29 Pain Scale: Adult bm8 [place] Coma Score: 05/23 21:31 Eye Response: spontaneous(4). Motor Response: obeys commands(6). Verbal Response: bm8 oriented(5). Total: 15. 23:04 Eye Response: spontaneous(4). Motor Response: obeys commands(6). Verbal Response: bm8 oriented(5). Total: 15. 05/24 00:29 Eye Response: spontaneous(4). Motor Response: obeys commands(6). Verbal Response: bm8 oriented(5). Total: 15. ED Course: 05/23 19:29 Patient arrived in ED. gm2 20:17 Triage completed. cm10 20:18 Arm band placed on right wrist. Patient placed in waiting room. cm10 20:38 [facility]in Montano [facility]NP-C [facility] kb 20:38 Pk Mercado MD is Attending Physician. kb 21:31 Juan Jimenez, GRICELDA is Primary Nurse. bm8 21:31 Patient has correct armband on for positive identification. Bed in low position. Call bm8 light in reach. Side rails up X 1. Client placed on continuous cardiac and pulse oximetry monitoring. NIBP monitoring applied. Pulse ox on. NIBP on. Door closed. Warm blanket given. Pillow given. Verbal reassurance given. Head of bed elevated. 21:31 No provider procedures requiring assistance completed. bm8 21:58 Initial lab(s) drawn, by me, sent to lab. Inserted saline lock: 20 gauge in right bm8 antecubital area, using aseptic technique. Blood collected. Flushed with 10 mL NS intraosseous access. 23:59 Test, Urine Sent. oe 23:59 Urinalysis w/ reflexes Sent. oe 05/24 00:00 Urine collected: clean catch specimen, shaka colored. oe 00:29 Provided Education on: post er care. bm8 00:29 IV discontinued, intact, bleeding controlled, No redness/swelling at site. Pressure bm8 dressing applied. Administered Medications: 05/23 21:57 Drug: NS 0.9% IV 1000 ml IV at 1 bolus Per protocol; to be given as a bolus over 60 bm8 minutes Route: IV; Rate: 1 bolus; Site: right antecubital; 05/24 00:30 Follow up: Response: No adverse reaction; IV Status: Completed infusion; IV Intake: bm8 1000ml 05/23 21:58 Drug: Ondansetron IVP 4 mg IVP once; over 2 minutes Route: IVP; Site: right antecubital;bm8 23:50 Follow up: Response: No adverse reaction lg3 Medication: 21:31 VIS not applicable for this client. bm8 Intake: 05/24 00:30 IV: 1000ml; Total: 1000ml. bm8 Outcome: 00:08 Discharge ordered by . blanche 00:29 Discharged to home ambulatory, bm8 00:29 Condition: stable 00:29 Discharge instructions given to patient, family, Instructed on discharge instructions, follow up and referral plans. no drinking with medication, no driving heavy equipment, medication usage, safety practices, Demonstrated understanding of instructions, follow-up care, medications, Prescriptions given X 2, 00:36 Patient left the ED. lg3 Signatures: Arin Montano, ALEX RIVERSP-Kee Robb Lacie RN RN lg3 Willow Rmairez, RN RN cm10 Khalida Leon gm2 Juan Jimenez RN RN bm8
--- NOTE | 2024-05-24 00:08 | EDPHYS ---
Physician Documentation [facility] Name: Jennifer Hilliard Age: 23 yrs Sex: Female : 2000 Arrival Date: 05/23/2024 Time: 19:24 Bed 5 Private MD: ED Physician Pk Mercado HPI: 05/24 00:17 This 23 yrs old Female presents to ER via Ambulatory with complaints of Fever, kb Abdominal Pain, Nausea/Vomiting. 00:19 Pt is a 23 year old female who presents for n/v/d and abd cramping that started this kb morning. Fiance and child have similar symptoms. No aggravating or alleviating factors. . STAFF RN: 00:30 unknown bm8 Historical: - Allergies: 05/23 20:17 No Known Allergies; cm10 - Home Meds: 20:17 None [Active]; cm10 - PMHx: 20:17 None; cm10 - PSHx: 20:17 section; cm10 - Immunization history:: Adult Immunizations up to date. - Infectious Disease History:: Denies. - Social history:: Smoking status: Patient denies any tobacco usage or history of. ROS: 05/24 00:17 Constitutional: As per HPI kb Exam: 00:17 Constitutional: This is a well developed, well nourished patient who is awake, alert, kb and in no acute distress. Head/Face: Normocephalic, atraumatic. ENT: Moist Mucous membranes Cardiovascular: Regular rate Respiratory: Respirations even and unlabored. No increased work of breathing. Talking in full sentences Abdomen/GI: Soft, non-tender. No distention Skin: Warm, dry with normal turgor. Normal color. MS/ Extremity: Pulses equal, no cyanosis. Neurovascular intact. Full, normal range of motion. Neuro: Awake and alert, GCS 15, oriented to person, place, time, and situation. Vital Signs: 05/23 20:15 BP 102 / 64; Pulse 110; Resp 19; Temp 98.4(IR); Pulse Ox 100% ; Weight 86.18 kg; Height cm10 5 ft. 8 in. ; Pain 0/10; 21:31 BP 102 / 56; Pulse 99; Resp 17; Temp 99.2; Pulse Ox 99% on R/A; Pain 7/10; bm8 23:04 BP 111 / 62; Pulse 90; Resp 17; Temp 99; Pulse Ox 99% ; Pain 3/10; bm8 05/24 00:29 BP 115 / 57; Pulse 85; Resp 17; Temp 98.9; Pulse Ox 100% ; Pain 0/10; bm8 05/23 20:15 Body Mass Index 28.89 (86.18 kg, 172.72 cm) cm10 05/23 20:15 Pain Scale: Adult cm10 21:31 Pain Scale: Adult bm8 23:04 Pain Scale: Adult bm8 05/24 00:29 Pain Scale: Adult bm8 Yadira Coma Score: 05/23 21:31 Eye Response: spontaneous(4). Motor Response: obeys commands(6). Verbal Response: bm8 oriented(5). Total: 15. 23:04 Eye Response: spontaneous(4). Motor Response: obeys commands(6). Verbal Response: bm8 oriented(5). Total: 15. 05/24 00:29 Eye Response: spontaneous(4). Motor Response: obeys commands(6). Verbal Response: bm8 oriented(5). Total: 15. MDM: 05/23 20:52 Medical Screening Exam initiated kb 05/24 00:17 Differential diagnosis: gastritis, pancreatitis, viral gastroenteritis, dehydration, kb abnormal electrolytes. Data reviewed: vital signs, nurses notes. Test considered but Not performed: CT: ct abd considered but pt has no abd tenderness, is tolerating po after treatment, feeling better. Significant other and child have same symptoms. Counseling: I had a detailed discussion with the patient and/or guardian regarding the historical points, exam findings, and any diagnostic results supporting the discharge/admit diagnosis, lab results, the need for outpatient follow up, a family practitioner, to return to the emergency department if symptoms worsen or persist or if there are any questions or concerns that arise at home. 05/23 21:17 Order name: CBC with Diff; Complete Time: 23:58 kb 05/23 21:17 Order name: CMP; Complete Time: 23:10 kb 05/23 21:17 Order name: Lipase; Complete Time: 23:10 kb 05/23 21:17 Order name: Test, Urine; Complete Time: 00:28 kb 05/23 21:17 Order name: Urinalysis w/ reflexes; Complete Time: 00:28 kb 05/23 23:17 Order name: Manual Differential; Complete Time: 23:58 EDMS 05/23 21:17 Order name: IV Saline Lock; Complete Time: 21:58 kb 05/23 21:17 Order name: Labs collected and sent; Complete Time: 21:58 kb Administered Medications: 05/23 21:57 Drug: NS 0.9% IV 1000 ml IV at 1 bolus Per protocol; to be given as a bolus over 60 bm8 minutes Route: IV; Rate: 1 bolus; Site: right antecubital; 05/24 00:30 Follow up: Response: No adverse reaction; IV Status: Completed infusion; IV Intake: bm8 1000ml 05/23 21:58 Drug: Ondansetron IVP 4 mg IVP once; over 2 minutes Route: IVP; Site: right antecubital;bm8 23:50 Follow up: Response: No adverse reaction lg3 Disposition Summary: 05/24/24 00:08 Discharge Ordered Notes: Location: Home kb Condition: Stable kb Diagnosis - Noninfective gastroenteritis and colitis, unspecified kb Followup: kb - With: Emergency Department - When: As needed - Reason: Worsening of condition Followup: kb - With: Private Physician - When: 2 - 3 days - Reason: Recheck today's complaints, Continuance of care, Re-evaluation by your physician Discharge Instructions: - Discharge Summary Sheet kb - Food Choices to Help Relieve Diarrhea, Adult kb - Viral Gastroenteritis, Adult, [id number] kb Forms: - Medication Reconciliation Form kb - Antibiotic Education kb - Prescription Opioid Use kb - Patient Portal Instructions kb - Leadership Thank You Letter kb Prescriptions: - Zofran 4 mg Oral tablet - take 1 tablet ORAL route every 6 hours As needed; 12 tablet; Refills: 0, kb Product Selection Permitted - dicyclomine 20 mg Oral tablet - take 1 tablet ORAL route 4 times per day As needed; 20 tablet; Refills: 0, kb Product Selection Permitted Signatures: Dispatcher [employer] Arin Long, JANAE-Zina CARDOSO-Willow Markham, RN RN cm10 Juan Jimenez, RN RN bm8 Maki Mccray RN lg3 Corrections: (The following items were deleted from the chart) 21: 21:17 CBC+H.LAB.BRZ ordered. EDWA EDMS 21:17 21:17 COMPREHENSIVE METABOLIC PANEL+C.LAB.BRZ ordered. EDMS EDMS 21:17 LIPASE+C.LAB.BRZ ordered. EDMS EDMS 21:17 Test, Urine+UC.LAB.BRZ ordered. EDMS EDMS 21:17 Urinalysis+U.LAB.BRZ ordered. EDMS EDMS
[2024-05-24 00:27] LABS: Specific Gravity > 1.030 (1.005-1.030); Sqamous Epithelial <5 /HPF (None Seen); Urine Bacteria None Seen /HPF (<20); Urine Bilirubin NEGATIVE (Negative); Urine Blood Negative (Negative); Urine Clarity Clear (Clear); Urine Color Yellow (Yellow); Urine Culture Reflex Order NOT NEEDED; Urine Glucose NEGATIVE (Negative); Urine Ketones 1+ (Negative); Urine Microscopic Reflex YN ORDER UMIC; Urine Mucus Slight /HPF (None Seen); Urine Nitrite NEGATIVE (Negative); Urine Protein TRACE (Negative); Urine RBC None Seen /HPF (None Seen); Urine Urobilinogen Normal (Normal); Urine WBC <5 /HPF (<5); Urine pH 6.5 (5.0-7.0)
[2024-05-24 00:44] VITALS: BP 115/57; TEMP 98.9; O2SAT 100
== END 2024-05-24 00:36 | disposition home or self-care (01) ==
LOC: ER 19:24
DX: K52.9 Noninfective gastroenteritis and colitis, unspecified (principal)
CPT/HCPCS: 36415; 36680; 80053; 81001; 81025; 83690; 85025; 96361; 96374; 99285; J2405; J7030